=== PATIENT | male | born 1990 ===

== ENCOUNTER 2020-06-29 08:00 | Outpatient (RCR) | payer OTHER, SELFPAY ==
--- NOTE | 2020-08-31 15:18 | MHC.PT.DC ---
[facility] [place] Office [place] Office [place] Office [address] [phone] F: [phone] F: [phone] F: [phone] F: [phone] Physical Therapy Discharge Report Diagnosis: Date of Surgery: Date of Evaluation: 05/26/20 Date of Discharge: 08/31/20 Treatments to Date: 3 Cancellations to Date: 0 No Shows to Date: 3 Discharge Status: Patient Elected to Stop Discharge Summary: Pt ATTENDED A FEW PT APPTS- WE DEV A HEP AND EDUC HIM RE POSTURE- HE WOULD HAVE BENEFITTED FROM [facility] IN PT TO ASSIST HIM IN MEETING PT GOALS AND 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 Electronically signed by: JACKIE SMITH,PT Please sign and return to therapist. Thank you for your referral.
== END 2020-08-31 12:34 | disposition other institution (70) ==
LOC: HO.PT 08:00
PROVIDERS: PCP Internal Medicine; Visit Provider Internal Medicine
DX: M54.2 Cervicalgia (principal)
CPT/HCPCS: 97110; 97140

== ENCOUNTER 2020-08-26 14:49 | Outpatient (REF) | payer OTHER, SELFPAY ==
[2020-08-26 16:25] LABS: Syphilis Screen Nonreactive (Nonreactive)
[2020-08-27 13:37] LABS: Herpes Simplex Type 1 IgG <0.90 index; Herpes Simplex Type 2 IgG <0.90 index
[2020-08-29 03:33] LABS: HIV AB/AG Nonreactive (Nonreactive); HIV Num 1 0.06 S/CO (0.00-0.99)
[2020-08-29 03:46] LABS: ~HepC Num1 0.05 S/CO (0.00-0.79); ~Hepatitis C Antibody Nonreactive (Nonreactive)
== END 2020-08-26 14:50 | disposition home or self-care (01) ==
LOC: HO.LAB 14:49
PROVIDERS: PCP Internal Medicine; Visit Provider Internal Medicine
DX: Z11.3 Encounter for screening for infections with a predominantly sexual mode of transmission (principal)
CPT/HCPCS: 86695; 86696; 86780; 86803; 87389

== ENCOUNTER 2020-12-07 08:57 | Outpatient (REF) | payer OTHER, SELFPAY ==
--- NOTE | ~2020-12-07 | XR_ITS ---
EXAMINATION: XR CHEST CLINICAL INFORMATION: Dyspnea COMPARISON: None TECHNIQUE: 2 views of the chest were obtained. FINDINGS: No significant abnormality is noted involving the heart, lungs, mediastinum, bony thorax or soft tissues. XR/XR chest 2V IMPRESSION: Unremarkable examination.
[2020-12-07 09:37] LABS: MANUAL DIFF FLAG NO
[2020-12-07 09:44] LABS: Basophils Percent Auto 0.4 % (0-2); Eosinophils Absolute Auto 0.1 X10*3/uL (0.0-0.4); Eosinophils Percent Auto 1.8 % (0-4); Hematocrit 48.7 % (42-52); Hemoglobin 16.9 g/dl (14.0-18.0); Imm Gran Abs Auto 0.01 X10*3/uL (0.00-0.03); Imm Gran Pct Auto 0.2 % (0.0-0.4); Lymphocytes Absolute Auto 1.8 X10*3/uL (1.2-4.9); Mean Corpuscular HGB Conc 34.7 g/dl (31.0-36.0); Mean Corpuscular Hemoglobin 29.1 pg (27.0-33.0); Mean Corpuscular Volume 83.8 fL (80-98); Mean Platelet Volume 10.1 fL (9.4-12.4); Monocytes Absolute Auto 0.7 X10*3/uL (0.1-1.2); Monocytes Percent Auto 14.3 % (2-11); Neutrophils Absolute Auto 2.5 X10*3/uL (2.0-8.3); Neutrophils Percent Auto 48.3 % (45-73); Platelet Count 302 X10*3/uL (160-400); Red Blood Count 5.81 X10*6/uL (4.60-5.80); Red Cell Distribution Width 12.3 % (11.0-16.0); White Blood Count 5.1 X10*3/uL (4.8-10.8)
[2020-12-07 10:12] LABS: Anion Gap 14 (12-20); Blood Urea Nitrogen 16 mg/dL (9-16); Calcium 9.7 mg/dL (8.4-10.2); Carbon Dioxide 30 mmol/L (22-29); Chloride 102 mmol/L (96-108); Estimated Glomerular Filt Rate > 60; Glucose Random 74 mg/dL (60-115); Potassium 4.5 mmol/L (3.3-5.1); Sodium 141 mmol/L (135-145)
== END 2020-12-07 08:58 | disposition home or self-care (01) ==
LOC: HO.LAB 08:57
PROVIDERS: PCP Internal Medicine; Visit Provider Internal Medicine
DX: Z00.00 Encounter for general adult medical examination without abnormal findings (principal); R51.9 Headache, unspecified; R06.00 Dyspnea, unspecified
CPT/HCPCS: 36415; 71046; 80048; 85025

== ENCOUNTER 2020-12-19 09:11 | Outpatient (REF) | payer OTHER, SELFPAY ==
[2020-12-19 12:56] LABS: SARS COV2 PCR INHOUSE NEGATIVE (Negative)
== END 2020-12-19 09:12 | disposition home or self-care (01) ==
LOC: HO.LAB 09:11
PROVIDERS: Visit Provider Internal Medicine
DX: Z20.822 Contact with and (suspected) exposure to COVID-19 (principal)
CPT/HCPCS: C9803; U0003

== ENCOUNTER 2021-01-30 10:30 | Outpatient (REF) | payer OTHER, SELFPAY ==
[2021-01-30 10:48] LABS: COVID-19 Test Negative (Negative)
== END 2021-01-30 10:31 | disposition home or self-care (01) ==
LOC: HO.LAB 10:30
PROVIDERS: Visit Provider Internal Medicine
DX: Z20.822 Contact with and (suspected) exposure to COVID-19 (principal)
CPT/HCPCS: 36415; 87635; C9803

== ENCOUNTER 2021-02-06 14:08 | Emergency (ER) | payer OTHER, SELFPAY ==
[2021-02-06 15:15] VITALS: BP 137/72; PULSE 78; RESP 16; TEMP 36.6; O2SAT 95; BMI 27.3
--- NOTE | 2021-02-06 15:56 | ED_ITS ---
HPI - Anxiety General Chief Complaint: Anxiety Stated Complaint: ANXIETY Time Seen by Provider: 02/06/21 15:51 Source: patient Mode of arrival: ambulatory Limitations: no limitations History of Present Illness HPI narrative: patient with recent panic attacks. patient started paxil for anxiety on Saturday. Today patient was driving when he was feeling increased panic attack. His doctor started him on paxil complaint: anxiety Onset (ago): hour(s) Symptoms: palpitations, extremity numbness/tingling and perioral numbness/tingli ng Severity: moderate Quality: intermittent Place: home History of similar episodes: Yes Provoking factors: work/job stress Relieving factors: nothing Exacerbating factors: nothing Associated symptoms: chest pain Related Data Previous Rx's Medication Instructions Recorded fluticasone propionate 50 1 spray INTRANASAL BID #16 g 02/02/21 mcg/actuation nasal spray,suspension paroxetine HCl 20 mg tablet 20 mg PO DAILY #30 tab 02/02/21 hydroxyzine HCl 25 mg PO TID PRN #20 tab 02/06/21 Allergies Allergy/AdvReac Type Severity Reaction Status Date / Time Penicillins [PENICILLINS] Allergy Unknown UNKNOWN- Verified 02/02/21 15:30 CHILDHOOD ALLERGY Review of Systems Constitutional: Constitutional: Reports no additional constitutional complaints Eyes: Eyes: Reports no additional eye complaints ENT: Denies dizziness Cardiovascular: Cardiovascular: Reports no additional cardiovascular complaints Respiratory: Respiratory: Reports as per HPI Gastrointestinal: Gastrointestinal: Reports no additional gastrointestinal complaints Musculoskeletal: Musculoskeletal: Reports no additional musculoskeletal complaints Integumentary/Breasts: Skin/Breast: Denies rash Neurologic: Reports system reviewed and no additional complaints, except as documented, Denies dizziness and Denies Sensory deficit (Neuro) Psychiatric: Psychiatric: Denies anxiety PMFSH Past Medical History Medical History High cholesterol Panic disorder Surgical History History of appendectomy Family History Family History Father No problems noted. Mother No problems noted. Sister No problems noted. Sister No problems noted. Sister No problems noted. Son No problems noted. Daughter No problems noted. Daughter No problems noted. Social History Social History Alcohol intake: never Smoking Status: Never smoker Advance Directives Date on File: 06/20/20 Physical Exam Vital Signs: Vital Signs: Last Vital Signs Temp 97.8 F 02/06/21 15:15 Pulse 78 02/06/21 15:15 Resp 16 02/06/21 15:15 BP 137/72 02/06/21 15:15 Pulse Ox 95 02/06/21 15:15 Body Mass Index 27.3 Const: Other: patient appearing comfortable General: healthy appearing Nutritional Appearance: average body habitus Orientation/consciousness: oriented to person and patient oriented x3 Limitations: no limitations HENMT: Head: Yes normal to inspection Ears: external ears normal General nose exam: Normal external nose present Mouth: Normal oral and palatal mucosa present and oropharynx normal Throat: Yes posterior oropharynx normal Eyes: General: appearance normal, both eyes and all related structures Neck: Other: supple Neck: Yes normal visual inspection Chest: Chest palpation & inspection: normal inspection of the chest Resp: Auscultation: clear to auscultation bilaterally Cardio: Jugular venous distension: no JVD Rate: regular rate Rhythm: regular rhythm Heart sounds: S1 normal heart sound present and S2 normal heart sound present GI: Inspection: Yes normal to inspection Palpation (GI): Soft to palpation, nontender and No hepatosplenomegaly present Auscultation: normal bowel sounds : General: Yes no CVA tenderness Back/Spine/Pelvis: Back: no CVA tenderness Skin: General skin exam: no rashes or lesions noted Neuro: General: oriented to person and patient oriented x3 Cranial nerves: Yes CN's II-XII intact bilaterally Motor exam (neuro): 5/5 motor strength present throughout Sensory Exam: No Sensory deficit (Neuro) Extrem: General: Yes normal to inspection Psych: Appearance: grossly normal Course Course Course Narrative: Patient resting comfortably will start hydroxyzine for anxiety Discharge Plan Discharge Clinical Impression: Acute anxiety Patient Disposition: Home, Self-Care Instructions: Anxiety (ED) Prescriptions: New hydroxyzine HCl 25 mg tablet 25 mg PO TID PRN (Reason: anxiety) Qty: 20 RF: 0 No Action fluticasone propionate 50 mcg/actuation spray,suspension 1 spray intranasal BID Qty: 16 RF: 5 paroxetine HCl [Paxil] 20 mg tablet 20 mg PO DAILY Qty: 30 RF: 8 Referrals: Lainer,Jc C, MD [Primary Care Provider] - 1 week
== END 2021-02-06 16:23 | disposition home or self-care (01) ==
LOC: HO.ED 16:23
PROVIDERS: Emergency Provider Emergency Medicine; PCP Internal Medicine
DX: F41.9 Anxiety disorder, unspecified (principal); E78.5 Hyperlipidemia, unspecified
CPT/HCPCS: 99283; 99284

== ENCOUNTER 2021-05-07 00:06 | Emergency (ER) | payer OTHER, SELFPAY ==
[2021-05-07 00:29] VITALS: BP 123/80; PULSE 74; RESP 16; TEMP 36.6; O2SAT 97; BMI 28.2
[2021-05-07 02:00] VITALS: BP 119/72; PULSE 68; RESP 11; TEMP 36.5; O2SAT 99
--- NOTE | 2021-05-07 02:43 | ECG_ITS ---
Test Reason : CEST PAIN Blood Pressure : / mmHG Vent. Rate : 064 BPM Atrial Rate : 064 BPM P-R Int : 152 ms QRS Dur : 094 ms QT Int : 382 ms P-R-T Axes : 025 065 023 degrees QTc Int : 394 ms Normal sinus rhythm with sinus arrhythmia Normal ECG No previous ECGs available Referred By: Sheridan Blair Electronically Signed By:TOMÁS MENA
--- NOTE | 2021-05-07 02:43 | ED_ITS ---
HPI - Chest Pain General Chief Complaint: Chest Pain Stated Complaint: chest pain Time Seen by Provider: 05/07/21 02:38 Source: patient Mode of arrival: ambulatory Limitations: no limitations History of Present Illness HPI narrative: Patient comes emergency room complaining of chest pain for the last 2-3 weeks. Patient states sometimes he feels there is something sharp, that radiates from his left wrist up to his shoulder down to her. Lasting a few seconds. At this time, patient is asymptomatic. Patient states the chest pain gets better when he takes his medications for anxiety. Related Data Home Medications Medication Instructions Recorded Confirmed fluticasone propionate 50 1 spray INTRANASAL BID 04/27/21 04/27/21 mcg/actuation nasal spray,suspension (Flonase Allergy Relief) Previous Rx's Medication Instructions Recorded lorazepam 1 mg tablet 1 mg PO BID PRN #60 tab 04/25/21 oxcarbazepine 300 mg tablet 300 mg PO BID 7 Days #14 tab 05/05/21 (Trileptal) quetiapine 25 mg tablet (Seroquel) 25 mg PO DAILY PRN #7 tab 05/05/21 quetiapine 50 mg tablet (Seroquel) 50 mg PO BEDTIME 7 Days #7 tab 05/05/21 Allergies Allergy/AdvReac Type Severity Reaction Status Date / Time Penicillins [PENICILLINS] Allergy Unknown UNKNOWN- Verified 04/25/21 13:39 CHILDHOOD ALLERGY Review of Systems Review of Systems: Constitutional : No Weight loss, No Fever, No Chills, No Night Sweats, No Fatigue, No Malaise ENT/Mouth : No Hearing loss, No Ear Pain, No Nasal Congestion, No Sinus Pain, No Hoarseness, No sore throat, No Rhinorrhea, No Swallowing Difficulty Eyes: No Eye Pain, No Swelling, No Redness, No Foreign Body, No Discharge, No Vision Changes Cardiovascular : Complaining of intermittent sharp Chest Pain, No SOB, No Dyspnea on Exertion, No Orthopnea, No Edema, No Palpitations Respiratory : No Cough, No Sputum, No Wheezing, No Smoke Exposure, No Dyspnea Gastrointestinal : No Nausea, No Vomiting, No Diarrhea, No Constipation, No abdominal Pain, No Hematochezia, No Melena Genitourinary : no irregular bleeding, No Dysuria, No Urinary Frequency, No Hematuria, No Urinary Incontinence, No Urgency, No Flank Pain, No Urinary Flow Changes, No Hesitancy Musculoskeletal : No joint pain, No Myalgias, No Joint Swelling Skin : No Skin Lesions, No rash Neuro : No Weakness, No Numbness, No Paresthesias, No Loss of Consciousness, No Dizziness, No Headache Psych : Complaining of anxiety, No Depression, No SI/HI/AH/VH, No Social Issues, Heme/Lymph: No Bruising, No Bleeding,No Lymphadenopathy Endocrine : No Polyuria, No Polydipsia, No Temperature Intolerance [facility] Past Medical History Medical History High cholesterol Panic disorder Surgical History History of appendectomy Family History Family History Father No problems noted. Mother No problems noted. Sister No problems noted. Sister No problems noted. Sister No problems noted. Son No problems noted. Daughter No problems noted. Daughter No problems noted. Social History Social History Household Members: None Housing: House Alcohol intake: never Patient Tobacco Use Status: Never used Tobacco Second Hand Smoke Exposure: No Use of substances other than those prescribed or required for medical reasons: No Advance Directives: Yes Advance Directives on File: Yes Advance Directives Date on File: 06/20/20 service: No Current occupational status: unemployed Physical Exam Vital Signs: Vital Signs: Last Vital Signs Temp 97.7 F 05/07/21 02:00 Pulse 68 05/07/21 02:00 Resp 11 L 05/07/21 02:00 BP 119/72 05/07/21 02:00 Pulse Ox 99 05/07/21 02:00 Body Mass Index 28.2 Const: Other: Appearance: Alert. Oriented X3. No acute distress. Eyes: Pupils equal, round and reactive to light. ENT: Pharynx normal. Neck: Normal inspection. Neck supple. No lymph nodes noted. No crepitus CVS: Normal heart rate and rhythm. Pulses normal. Normal S1 and S2 Respiratory: No respiratory distress. Breath sounds normal. No Wheezing. No rales Abdomen: Soft and nontender. No rigidity. No distention. good BS x4 Skin: Skin warm and dry. Normal skin color. Normal skin turgor. Extremities: No lower extremity edema. No Lacerations. No Rash Neuro: Oriented X 3. No motor deficit. No sensory deficit. Moving all extermities. No slurred speech. Course Course Course Narrative: Patient remains asymptomatic, EKG and troponin negative. Wells score for PE is 0 MDM - Chest Pain Lab Data Result diagrams: 05/07/21 03:19 05/07/21 03:19 Labs: Lab Results 05/07/21 05/07/21 05/07/21 Range/Units 03:19 03:19 03:19 WBC 4.8 (4.8-10.8) X10*3/uL RBC 5.31 (4.60-5.80) X10*6/uL Hgb 15.7 (14.0-18.0) g/dl Hct 43.7 (42-52) % MCV 82.3 (80-98) fL MCH 29.6 (27.0-33.0) pg MCHC 35.9 (31.0-36.0) g/dl RDW 12.2 (11.0-16.0) % Plt Count 245 (160-400) X10*3/uL MPV 9.5 (9.4-12.4) fL Immature Gran % (Auto) 0.2 (0.0-0.4) % Neut % (Auto) 38.3 L (45-73) % Lymph % (Auto) 49.2 H (20-40) % [place] % (Auto) 9.6 (2-11) % Eos % (Auto) 2.1 (0-4) % Baso % (Auto) 0.6 (0-2) % Lymph # (Auto) 2.4 (1.2-4.9) X10*3/uL [place] # (Auto) 0.5 (0.1-1.2) X10*3/uL Eos # (Auto) 0.1 (0.0-0.4) X10*3/uL Baso # (Auto) 0.0 (0.0-0.2) X10*3/uL Abs Immat Gran (auto) 0.01 (0.00-0.03) X10*3/uL Absolute Neuts (auto) 1.8 L (2.0-8.3) X10*3/uL Absolute Nucleated RBC 0.000 (0.0-0.012) X10*3/uL Nucleated RBC % (auto) 0.0 (0.0-0.2) /100WBC Sodium 140 (135-145) mmol/L Potassium 4.6 (3.3-5.1) mmol/L Chloride 103 (96-108) mmol/L Carbon Dioxide 31 H (22-29) mmol/L Anion Gap 11 L (12-20) BUN 12 (9-16) mg/dL Creatinine 1.15 (0.5-1.4) mg/dL Estim Creat Clear Calc 104.2 Estimated GFR > 60 Random Glucose 93 (60-115) mg/dL Calcium 10.1 (8.4-10.2) mg/dL Troponin I High Sens < 3.5 (<3.5-35.0) ng/L ECG Data ECG #1: Attestation: I personally reviewed and interpreted this ECG as follows: (Normal sinus rhythm, heart rate 64, nonspecific T-wave inversion in lead 3, QTC 394) Discharge Plan Discharge Clinical Impression: Atypical chest pain Patient Disposition: Home, Self-Care Instructions: Chest Wall Pain (ED), Chest Pain (ED) Additional Instructions: Please follow-up with your primary care physician tomorrow. If you have any worsening or new symptoms, please return to the emergency room or call 911 Prescriptions: No Action fluticasone propionate [Flonase Allergy Relief] 50 mcg/actuation spray,suspens ion 1 spray intranasal BID RF: 0 oxcarbazepine [Trileptal] 300 mg tablet 300 mg PO BID 7 Days Qty: 14 RF: 0 quetiapine [Seroquel] 50 mg tablet 50 mg PO BEDTIME 7 Days Qty: 7 RF: 0 quetiapine [Seroquel] 25 mg tablet 25 mg PO DAILY PRN (Reason: anxiety) Qty: 7 RF: 0 lorazepam 1 mg tablet 1 mg PO BID PRN (Reason: anxiety) Qty: 60 RF: 0
[2021-05-07 03:22] LABS: MANUAL DIFF FLAG NO
[2021-05-07 03:24] LABS: Basophils Percent Auto 0.6 % (0-2); Eosinophils Absolute Auto 0.1 X10*3/uL (0.0-0.4); Eosinophils Percent Auto 2.1 % (0-4); Hematocrit 43.7 % (42-52); Hemoglobin 15.7 g/dl (14.0-18.0); Imm Gran Abs Auto 0.01 X10*3/uL (0.00-0.03); Imm Gran Pct Auto 0.2 % (0.0-0.4); Lymphocytes Absolute Auto 2.4 X10*3/uL (1.2-4.9); Lymphocytes Percent Auto 49.2 % (20-40); Mean Corpuscular HGB Conc 35.9 g/dl (31.0-36.0); Mean Corpuscular Hemoglobin 29.6 pg (27.0-33.0); Mean Corpuscular Volume 82.3 fL (80-98); Mean Platelet Volume 9.5 fL (9.4-12.4); Monocytes Absolute Auto 0.5 X10*3/uL (0.1-1.2); Monocytes Percent Auto 9.6 % (2-11); Neutrophils Absolute Auto 1.8 X10*3/uL (2.0-8.3); Neutrophils Percent Auto 38.3 % (45-73); Platelet Count 245 X10*3/uL (160-400); Red Blood Count 5.31 X10*6/uL (4.60-5.80); Red Cell Distribution Width 12.2 % (11.0-16.0); White Blood Count 4.8 X10*3/uL (4.8-10.8)
[2021-05-07 03:45] LABS: Anion Gap 11 (12-20); Blood Urea Nitrogen 12 mg/dL (9-16); Calcium 10.1 mg/dL (8.4-10.2); Carbon Dioxide 31 mmol/L (22-29); Chloride 103 mmol/L (96-108); Creatinine Clr Calc Pharmacy 104.2; Estimated Glomerular Filt Rate > 60; Glucose Random 93 mg/dL (60-115); Potassium 4.6 mmol/L (3.3-5.1); Sodium 140 mmol/L (135-145)
[2021-05-07 03:48] LABS: Troponin-I High Sensitivity < 3.5 ng/L (<3.5-35.0)
== END 2021-05-07 04:24 | disposition home or self-care (01) ==
PROVIDERS: Emergency Provider Emergency Medicine
DX: R07.89 Other chest pain (principal); M25.532 Pain in left wrist; Z79.899 Other long term (current) drug therapy
CPT/HCPCS: 36415; 80048; 84484; 85025; 93005; 99285

== ENCOUNTER 2021-05-17 09:00 | Outpatient (RCR) | payer OTHER, SELFPAY ==
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
[2021-04-27 12:36] VITALS: BMI 26.6
--- NOTE | 2021-04-27 13:13 | PC.ADMIT ---
Addendum entered by Tracy Wheeler RN 04/27/21 14:55: illicit drugs. Patient denies any current medical issues. Denies pain. Medications reconciled with patient and pharmacy. Medication changes made by [employer]: Sertraline discontinued, start Trileptal 150mg twice daily, Hydroxyzine 25mg 4x daily prn anxiety. Medication teaching done patient states good understanding. Original Note: 30 year old male admitted to [facility] on 04/27/2021. Patient reports increasing depression and anxiety with daily panic attacks. Patient reports he can no longer drive and does not leave home, states I never know when the panic attacks will come Patient denies SI and HI. States he has had suicidal thoughts in past without plan, no current SI. Patient denies AH and VH. Patient has been attending telehealth therapy. Patient denies any substance abuse. States he has never smoked, never drank alcohol, no use of
--- NOTE | 2021-04-27 14:18 | PC.NURSE ---
Case opened in treatment team
--- NOTE | 2021-05-01 14:40 | PC.NURSE ---
case opened in treatment team
--- NOTE | 2021-05-01 17:27 | HO.PHPPROGNO ---
Subjective Subjective Date of Service: 05/01/21 Reason For Visit: Bipolar I Subjective Notes: Watkins Warning Guardianship: No Medical Problems Affecting Mental Status: No Interim History: Frantz reports that he had begun the Trileptal 150 mg twice daily, and then he has tolerated well over the weekend. He also reports that he did not take the hydroxyzine, as he remembered taking in the past and did not like it stating ?it made me feel dizzy before ?. He reports that he continues with the lorazepam twice daily, and that he has not experienced a panic disorder in several weeks. Medication Compliance: Yes Side effects from medications: No Attending Groups: Yes Review of Systems Acute medical concerns: No Medical Review of Systems: unchanged Review of Systems Review of Systems Yes all other systems are reviewed and are negative Mental Status Exam Mental Status Exam Narrative: Well-developed, well-nourished male, in no apparent distress. Well groomed, eye contact within normal limits, no involuntary movements, motor activity calm, posture within normal limits. Manner and behavior calm, cooperative. Speech was fluent and unimpaired. Mood depressed, anxious. Affect mood congruent. Thought process and associations were goal directed. Thought content was normal, future oriented. No delusions, no hallucinations, denies any type of harm to self or others. Ambulation not observed. Patient Appearance: Well Grooomed and Appropriate Patient Orientation: Person, Place, Time and Situation Level of Consciousness: Awake and Appropriate Patient Behavior: Appropriate and Cooperative Mood Description: Depressed and Anxious Affect Description: Depressed and Anxious Ability to Follow Directions: Excellent Speech Pattern: Clear Memory Description: Intact Hallucinations: None Delusions: Not Present Thought Process: Intact Thought Content: positive for Intact Depressive Symptoms: Increased Anxiety, Feelings of Worthlessness, Hopelessness, Feelings of Guilt, Increased Fatigue and Low Self Esteem Judgement: Fair Diagnostics Vital Signs (24Hr): Body Mass Index 26.6 Assessment & Plan Assessment & Plan (1) SHIV (generalized anxiety disorder): Status: Acute Code(s): F41.1 - Generalized anxiety disorder Assessment and Plan: Patient has declined to start hydroxyzine. Patient continues with lorazepam b.i.d., states ?I am not ready to stop this yet ?. We did discuss other medications going forward, patient is willing to try BuSpar (2) Bipolar 1 disorder, depressed: Status: Acute Code(s): F31.9 - Bipolar disorder, unspecified Assessment and Plan: Patient reports that he has started Trileptal, and he feels comfortable with this medication. He states that he talked to his sister, and that she takes this medication with positive affect for similar issues. We discussed a dose increase. Patient is hesitant regarding medications, and wishes to only increase in small increments at this time. He states he is not experiencing any type of thoughts to harm self or others, no safety concerns at this time. Assessment and Plan: 1. Start BuSpar 5 mg b.i.d.. 2. Increase Trileptal to 150 mg in a.m., 300 in p.m.. 3. Patient receives lorazepam from PCP. 4. DC hydroxyzine, as patient has not taken. 5. Plan to follow up as per protocol. Reason for contiued partial hosp. stay Substantial Risk for: inability to function and med/psych decompensation Certification I certify that partial hospital treatment is medically necessary due to the symptoms and problems resulting from the patient's mental illness and the failure to treat the patient at the partial hospital level of care would likely result in the patient requiring inpatient psychiatric care which could not be prevented at a less intensive level of care. Greater than 50% of the session was spent on counseling and/or coordination of care Discharge Plan Discharge Attending provider: Onur Story Primary Care Provider: Jc Chao Medications: New oxcarbazepine [Trileptal] 150 mg tablet See Rx Instructions .ROUTE .COMPLEX 7 Days Qty: 21 RF: 0 buspirone 5 mg tablet 5 mg PO BID 7 Days Qty: 14 RF: 0 Discontinued sertraline 50 mg tablet 50 mg PO DAILY Qty: 30 RF: 3 No Action fluticasone propionate [Flonase Allergy Relief] 50 mcg/actuation spray,suspension 1 spray intranasal BID RF: 0 lorazepam 1 mg tablet 1 mg PO BID PRN (Reason: anxiety) Qty: 60 RF: 0 Referrals: Jc Chao MD [Primary Care Provider] - 1 Week Telehealth Telehealth Location of provider rendering services: practice address Location of patient: address on file Patient Identification confirmed using: Name, : Yes Telehealth method: video Patient verbally consented to treatment: Yes Patient verbally consented to billing insurance company: Yes Patient informed of any privacy concerns related to visit: Yes Time spent with patient (mins): 15
--- NOTE | 2021-05-03 09:33 | PC.NURSE ---
The client is out today due to an appointment he had scheduled prior to starting PHP
--- NOTE | 2021-05-04 14:43 | PC.NURSE ---
Spoke to patient who believes Buspar is causing an increase in energy when he takes it at HS causing issues with sleep and no longer wants to take at HS. Patient also stated the am dose causes dizziness for the first 20-30 minutes after taking which makes him anxious thus takes Lorazepam which helps. He wants to continue the morning dose as he finds it helpful. Reviewed with prescriber Sandra Barry NP who stated to D/C bedtime dose and continue the am dose. Patient is aware. Also advised patient to not operate heavy machinery and not to drive if feeling dizzy and patient agreed.
--- NOTE | 2021-05-05 14:42 | HO.PHPPROGNO ---
Subjective Subjective Date of Service: 05/05/21 Reason For Visit: Bipolar I Subjective Notes: Watkins Warning Guardianship: No Interim History: Frantz reports he has been taking Trileptal 150 mg in a.m. and then later 300 mg p.m. he did state though however that he has not been taking the 300 mg at night, but has been taking 150 mg t.i.d.. We reviewed medication instructions, and he states he understands that the 300mg was at bedtime, not split into 2 administrations. Med educ was provided. He reports feeling uncomfortable with the BuSpar, states that it feels it is activating for him. He reports that he chose to stop taking Seroquel in the past because he felt he was on too high a dose, even though was working well for him, and wanted to be able to stop it without needing to taper off. He reports that he has been continuing use of Ativan 1 mg b.i.d.. He states that his provider has told him he will no longer fill the script, and this is causing anxiety for patient. Medication Compliance: Yes Side effects from medications: No Attending Groups: Yes Review of Systems Acute medical concerns: No Medical Review of Systems: unchanged Mental Status Exam Mental Status Exam Narrative: Well-developed, well-nourished male, no apparent distress. Well groomed, dressed appropriately. Alert and oriented x4. Eye contact within normal limits. No involuntary movements noted, motor activity calm. Manner and behavior, cooperative. Speech fluent, unimpaired. Mood and affect anxious, depressed. Thought process and associations goal directed. Thought content is normal, future oriented. No delusions noted. No hallucinations noted. Patient denies any type of how thoughts of harm to self or others. Reliability and concentration appropriate. Judgment and insight continue fair. Ambulation not observed. Patient Appearance: Well Grooomed Patient Orientation: Person, Place, Time and Situation Diagnostics Vital Signs (24Hr): Body Mass Index 26.6 Assessment & Plan Assessment & Plan (1) SHIV (generalized anxiety disorder): Status: Acute Code(s): F41.1 - Generalized anxiety disorder Assessment and Plan: Patient reports he continues utilizing p.r.n. Ativan. He states his primary care physician has told him he will not refill script once he runs out. We discussed options such as adding gabapentin. Patient is not interested in doing this, but will consider resuming Seroquel. We discussed options including cutting the pills in half, and consider trialing p.r.n. Seroquel during the day. Patient is also agreeable to taking Seroquel 50 mg scheduled at bedtime. Patient willing to first try the seroquel when anxious and at bedtime. 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 Also, will use only 0.5mg of ativan rather than 1mg, as he is trying to wean down off the ativan. Patient also reports activation from [email or web address], med to be DC today. (2) Bipolar 1 disorder, depressed: Status: Acute Code(s): F31.9 - Bipolar disorder, unspecified Assessment and Plan: Patient reports he feels the Trileptal with a total dose of 450 mg daily is starting to help. He is willing to go up on dose to 300 mg b.i.d.. We discussed further titration, and it was recommended that after for 5 days he should consider increasing Trileptal again, as he is not yet at a therapeutic dose. He stated that he will consider this, and that he is willing to talk about it after the next few days. Denies any thoughts of harm to self or others, no safety concerns at this time. Assessment and Plan: 1. discontinue buspar. 2. Increase trileptal to 300mg BID. Patient willing to consider increase of dose in 4 to 5 days, will need to be seen. 3. Start seroquel 25mg prn for anxiety daily. 4. Start seroquel 50mg daily at bedtime. 5. Patient willing to first try the seroquel when anxious and at bedtime. Also, will use only 0.5mg of ativan rather than 1mg, as he is trying to wean down off the ativan. 6. Follow-up next Saturday or Saturday. Patient educated on: diagnosis, medication risk/benefits and therapeutic strategies Reason for contiued partial hosp. stay Substantial Risk for: inability to function and med/psych decompensation Certification I certify that partial hospital treatment is medically necessary due to the symptoms and problems resulting from the patient's mental illness and the failure to treat the patient at the partial hospital level of care would likely result in the patient requiring inpatient psychiatric care which could not be prevented at a less intensive level of care. Greater than 50% of the session was spent on counseling and/or coordination of care Discharge Plan Discharge Attending provider: Onur Story Primary Care Provider: Jc Chao Medications: New oxcarbazepine [Trileptal] 300 mg tablet 300 mg PO BID 7 Days Qty: 14 RF: 0 quetiapine [Seroquel] 50 mg tablet 50 mg PO BEDTIME 7 Days Qty: 7 RF: 0 quetiapine [Seroquel] 25 mg tablet 25 mg PO DAILY PRN (Reason: anxiety) Qty: 7 RF: 0 Discontinued sertraline 50 mg tablet 50 mg PO DAILY Qty: 30 RF: 3 No Action fluticasone propionate [Flonase Allergy Relief] 50 mcg/actuation spray,suspension 1 spray intranasal BID RF: 0 lorazepam 1 mg tablet 1 mg PO BID PRN (Reason: anxiety) Qty: 60 RF: 0 Referrals: Jc Chao MD [Primary Care Provider] - 1 Week Telehealth Telehealth Location of provider rendering services: practice address Location of patient: address on file Patient Identification confirmed using: Name, : Yes Telehealth method: video Patient verbally consented to treatment: Yes Patient verbally consented to billing insurance company: Yes Patient informed of any privacy concerns related to visit: Yes Time spent with patient (mins): 15
--- NOTE | 2021-05-09 13:07 | P.PNPSP_ITS ---
Subjective Subjective Date of Service: 05/09/21 Reason For Visit: Bipolar I Subjective Notes: Watkins Warning Healthcare Proxy: No Guardianship: No Medical Problems Affecting Mental Status: No Interim History: Frantz is a 30 y.o. who carries a dx of SHIV and unspecified bipolar disorder. At last session, he was started on seroquel 50 mg QHS and 25 mg QD PRN for anxiety, mood stability. He has been tapering himself off ativan 1 mg BID, as his PCP is no longer willing to prescribe and he is now down to 0.5 mg BID. He is now taking trileptal 300 mg BID. I evaluated the patient this morning and upon interview he reports this past weekend he had a wicked bad panic attack, attributes this to seroquel. On 05/07 Frantz self presented to [facility] via ambulance reporting chest pain x2-3 weeks. EKG was wnl, QTc was 394. Troponin was negative. Disposition was to f/u with OP providers for treatment of anxiety. He says he felt dizzy, super restless, and was unable to sleep after taking seroquel. He reports taking seroquel in the remote past and he does not remember adverse effects, however was unable to tolerate it now. He did not take it Saturday and says by Saturday his symptoms subsided. He reports positive benefit on increased trileptal dose, has noticed it is stabilizing my emotions. He continues to report struggling with anxiety, stressors include going through a break up. He has been doing well with weaning himself off ativan but says if he stops taking it altogether he notices increased anxiety. Says his sleep has been great when he is just taking trileptal. He is not interested in trialing any new medications today due to hx of side effects with recent med trials, im super over the trial and error type of thing. Also says he does not want to be on any meds that are sedating or addictive, likes the trileptal, asks to trial an increased dose of trileptal to target residual sx of anxiety due to tolerability. He reports he is feeling safe, denies SI/SIB/HI upon inquiry. He denies agitaiton or assaultive ideation. Denies sx of wendy. Medication Compliance: Yes Side effects from medications: No Attending Groups: Yes Review of Systems Acute medical concerns: No Review of Systems: CVS: No c/o chest pain, palpitations, no SOB FLANGE TURNER: No c/o dizziness, headache GI: No c/o Nausea, Vomiting, diarrhea, constipation or heartburns Mental Status Exam Mental Status Exam Narrative: A&O. Well groomed, good hygiene, normal body habitus. Good eye contact, attentive. No Tics or Tremors. No abnormal involuntary movements. Calm, cooperative, engaged. Non-pressured speech, spontaneous with regular rate and rhythm, normal volume and prosody. No prolonged speech latency or dysarthria. Mood is ?stable,? affect is euthymic. Denies SI/SIB/HI upon inquiry. Denies A/VH or delusional thought content. Thoughts are coherent, organized. No known cognitive or memory impairment. Insight/ Judgment fair and adequate. Diagnostics Vital Signs (24Hr): Body Mass Index 26.6 Assessment & Plan Assessment & Plan (1) SHIV (generalized anxiety disorder): Status: Acute Code(s): F41.1 - Generalized anxiety disorder (2) Bipolar 1 disorder, depressed: Status: Acute Code(s): F31.9 - Bipolar disorder, unspecified Assessment and Plan: Frantz is a 30 y.o. male who carries a dx of SHIV, unspecified bipolar disorder. He was referred to [facility] by [facility] therapist for increased sx of depression, anxiety, and panic attacks. Precipitating factors include going through a break up and losing employment. Plan: 1. Discontinue seroquel 50 mg QHS and 25 mg QD PRN due to reported side effects of restlessness and increased anxiety, dizziness 2. Increase trileptal to 450 mg BID for mood stability, may help with anxiety. Reviewed risks and benefits. 3. will continue to wean himself off ativan 1 mg BID PRN, now down to 0.5 mg BI D, does not want to be on anything addictive and PCP is no longer willing to prescribe. He does not want another PRN medication at this time. 4. Frantz is interested in obtaining an referral for OP med management and therapy, as he does not have a current psych provider and he would like a new therapist (currently sees someone at [facility] but does not feel like it is helping). He is interested in CBT therapy. 5. Monitor response to medications. Patient seen. Chart reviewed. Patient educated on: medication risk/benefits Reason for contiued partial hosp. stay Substantial Risk for: med/psych decompensation Certification I certify that partial hospital treatment is medically necessary due to the symptoms and problems resulting from the patient's mental illness and the failure to treat the patient at the partial hospital level of care would likely result in the patient requiring inpatient psychiatric care which could not be prevented at a less intensive level of care. Greater than 50% of the session was spent on counseling and/or coordination of care Discharge Plan Discharge Attending provider: Onur Story Primary Care Provider: Jc Chao Medications: New oxcarbazepine [Trileptal] 300 mg tablet 300 mg PO BID 7 Days Qty: 14 RF: 0 oxcarbazepine [Trileptal] 150 mg tablet 150 mg PO BID Qty: 30 RF: 1 Discontinued sertraline 50 mg tablet 50 mg PO DAILY Qty: 30 RF: 3 No Action fluticasone propionate [Flonase Allergy Relief] 50 mcg/actuation spray,suspension 1 spray intranasal BID RF: 0 lorazepam 1 mg tablet 1 mg PO BID PRN (Reason: anxiety) Qty: 60 RF: 0 Referrals: Jc Chao MD [Primary Care Provider] - 1 Week Stand Alone Forms: Patient Portal Discharge page
--- NOTE | 2021-05-09 14:34 | PC.NURSE ---
I called about made a referral for providers at [facility]. They will get back to me.
--- NOTE | 2021-05-10 09:54 | PC.NURSE ---
I called and made an intake appointment for the client at [facility]. The intake time is 05/19/21 @ 11 am with Brenda Mullen
--- NOTE | 2021-05-10 11:09 | PC.NURSE ---
Patient called and stated the groups were triggering for him today. Feeling increasingly anxious. He also stated he did not sleep well last night which is contributing to his anxiety and depression. Patient reports that he is safe. Denied SI. Patient stated he is discharging on Saturday and is feeling anxious about discharge which is increasing his anxiety. Wants more time in the program. Stated he is also anxious about getting new providers which staff is helping him obtain. Patient stated he needs to take the day off from the program today as he is feeling too triggered. Preethi Luong will reach out to patient to f/u. Educated patient about sleep hygiene and ways to reduce anxious feelings.
--- NOTE | 2021-05-10 12:41 | PC.NURSE ---
I spoke with blanca after he called stating that group brought up anxiety this morning and he is taking the rest of the day off. We discussed skills to use and having him start to attend 1/2 days. I also informed him of the intake appointment for providers and we decided that his time here will be extended until 05/18.
--- NOTE | 2021-05-11 15:06 | HO.PHPPROGNO ---
Subjective Subjective Date of Service: 05/11/21 Reason For Visit: Bipolar I Subjective Notes: Watkins Warning Guardianship: No Medical Problems Affecting Mental Status: No Interim History: Patient reports not taking medications as prescribed, saying that he has mistakenly taken too much tripletal because he thought it was the seroquel. He reports an increase in depression and anxiety. He reports that several days ago his Trileptal had been increased to 450 mg b.i.d.. He stated that ?this was too much for me ?. He states that he got dizzy and disoriented when taking the Seroquel and had stopped that earlier. He also reports that he had a panic attack last Saturday, and had gone to the ER and was sent home. Patient has had and an EKG dated 05/07/2021 that showed normal sinus rhythm, with signs of arrhythmia, classified as a normal ECG. He also had negative troponin. We discussed current medications. We discussed current trials of BuSpar, Seroquel, and now most recent issue with increased dose of Trileptal. Patient states he believes he has ?cardio phobia ?, and that he becomes overwhelmed because he thinks he is having a heart attack and needs to go to the hospital. He states that it occurs whenever he needs to drive, or when he needs to go to a class, and in groups. We discussed alternatives such as clonidine, propanolol. We discussed risks, benefits, side effects, and alternatives going forward. He is willing to try a low dose of propranolol, in order to help manage physical symptoms of anxiety / panic at this time. Medication Compliance: Intermittent Side effects from medications: No Attending Groups: Yes Review of Systems Acute medical concerns: No Medical Review of Systems: unchanged Mental Status Exam Mental Status Exam Narrative: Well-developed, well-nourished male, in no apparent distress. Restless, moving about the room during meeting. Gait appeared steady, no involuntary movements noted. Patient Appearance: Well Grooomed and Appropriate Patient Orientation: Person, Place, Time and Situation Level of Consciousness: Awake and Appropriate Patient Behavior: Appropriate, Restless, Anxious and Good Eye Contact Mood Description: Anxious Affect Description: Anxious Patient Cognition Impaired: No Ability to Follow Directions: Excellent Speech Pattern: Clear and Appropriate Memory Description: Intact Hallucinations: None Delusions: Not Present Thought Process: Intact, Goal Oriented and Linear Thought Content: positive for Intact, positive for Logical and positive for Hypochondriasis (states he is over-concerned with my heart . ) Depressive Symptoms: Increased Anxiety and Difficulty Sleeping Judgement: Fair Diagnostics Vital Signs (24Hr): Body Mass Index 26.6 Assessment & Plan Assessment & Plan (1) SHIV (generalized anxiety disorder): Status: Acute Code(s): F41.1 - Generalized anxiety disorder Assessment and Plan: Discussed medication options. Patient willing to try propranolol. (2) Bipolar 1 disorder, depressed: Status: Acute Code(s): F31.9 - Bipolar disorder, unspecified Assessment and Plan: Patient reports he did not like increased dose of Trileptal, as he feels it was too fast of an increase. He would prefer to continue with 300 mg b.i.d. for now. Assessment and Plan: 1. Continue trileptal 300mg BID, with plan to increase as tolerated. 2. Start propanolol 5mg BID prn, with plan to increase as tolerated. Reason for contiued partial hosp. stay Substantial Risk for: inability to function and med/psych decompensation Certification I certify that partial hospital treatment is medically necessary due to the symptoms and problems resulting from the patient's mental illness and the failure to treat the patient at the partial hospital level of care would likely result in the patient requiring inpatient psychiatric care which could not be prevented at a less intensive level of care. Greater than 50% of the session was spent on counseling and/or coordination of care Discharge Plan Discharge Attending provider: Onur tSory Primary Care Provider: Jc Chao Medications: New oxcarbazepine [Trileptal] 300 mg tablet 300 mg PO BID 7 Days Qty: 14 RF: 0 oxcarbazepine [Trileptal] 150 mg tablet 150 mg PO BID Qty: 30 RF: 1 propranolol 10 mg tablet 10 mg PO BID PRN (Reason: anxiety) Qty: 14 RF: 0 Discontinued sertraline 50 mg tablet 50 mg PO DAILY Qty: 30 RF: 3 No Action fluticasone propionate [Flonase Allergy Relief] 50 mcg/actuation spray,suspension 1 spray intranasal BID RF: 0 lorazepam 1 mg tablet 1 mg PO BID PRN (Reason: anxiety) Qty: 60 RF: 0 Referrals: Jc Chao MD [Primary Care Provider] - 1 Week Stand Alone Forms: Patient Portal Discharge page Telehealth Telehealth Location of provider rendering services: practice address Location of patient: address on file Patient Identification confirmed using: Name, : Yes Telehealth method: video Patient verbally consented to treatment: Yes Patient verbally consented to billing insurance company: Yes Patient informed of any privacy concerns related to visit: Yes Time spent with patient (mins): 15
--- NOTE | 2021-05-16 12:26 | HO.PHPPROGNO ---
Subjective Subjective Date of Service: 05/16/21 Reason For Visit: Bipolar I Subjective Notes: Watkins Warning and Conditional Voluntary Healthcare Proxy: No Guardianship: No Medical Problems Affecting Mental Status: No Interim History: Frantz is a 30 y.o. who carries a dx of SHIV and unspecified bipolar disorder. During the course of treatment at [facility], he has been started on trileptal 300 mg BID for mood stability. At last session, he was started on propranolol 10 mg BID PRN for anxiety. In addition, he has been tapering himself off ativan 1 mg BID, as his PCP was providing this but he is no longer willing to prescribe it outpatient.? Past med trials: Buspar, seroquel, hydroxyzine, paxil.? I evaluated the patient this morning and upon interview he reports he has been taking trileptal 300 mg BID and ?hetal been doing fine on it.? Says on 450 mg he felt like his ?depression was going back up.? He self-discontinued propranolol 10 mg BID for anxiety due to side effects of feeling ?tired,? ?sick,? ?tunnel vision,? and decreased heart rate (he checked it on his home pulse ox machine, says it was 50 bpm). Frantz admits he is ?very med sensitive.? He continues to report difficulting titrating off lorazepam, as he feels this has been the most effective for acute anxiety and he is tolerating it. He understands why it is not appropriate to prescribe a benzo in this setting, plans to ask for lorazepam for as needed and short term use during his OP med eval appointment. Denies hx of substance use other than cannabis (notes that sativa strands worsen anxiety, has not used it in several months because of this). Denies benefit on CBD.? Frantz does not want to trial a new medication, as he is nearing the end of his [facility] stay and has an OP med eval appointment coming up. Says on trileptal 300 mg he has noticed he feels ?less corcoran,? ?more leveled out.? He is also hopeful that CBT will help with his anxiety sx, hoping it will help with his driving anxiety, ?I cant drive right now.? His mom has a hx of agoraphobia and Frantz would like to avoid this.? Medication Compliance: Yes Side effects from medications: Yes Attending Groups: Yes Review of Systems Acute medical concerns: No Medical Review of Systems: unchanged Mental Status Exam Mental Status Exam Narrative: A&O. Well groomed, good hygiene, normal body habitus. Good eye contact, attentive. No Tics or Tremors. No abnormal involuntary movements. Calm, cooperative, engaged. Non-pressured speech, spontaneous with regular rate and rhythm, normal volume and prosody. No prolonged speech latency or dysarthria. Mood is ?better,? affect is euthymic. Denies SI/SIB/HI upon inquiry. Denies A/VH or delusional thought content. Thoughts are coherent, organized. No known cognitive or memory impairment. Insight/ Judgment fair and adequate. Diagnostics Vital Signs (24Hr): Body Mass Index 26.6 Assessment & Plan Assessment & Plan (1) SHIV (generalized anxiety disorder): Status: Acute Code(s): F41.1 - Generalized anxiety disorder (2) Bipolar 1 disorder, depressed: Status: Acute Code(s): F31.9 - Bipolar disorder, unspecified (3) Panic disorder: Status: Acute Code(s): F41.0 - Panic disorder [episodic paroxysmal anxiety] Assessment and Plan: Frantz is a 30 y.o. male who carries a dx of SHIV, unspecified bipolar disorder. He was referred to [facility] by [facility] therapist for increased sx of depression, anxiety, and panic attacks. Precipitating factors include going through a break up and losing employment. 05/16: Frantz does not want to trial a new medication, as he is nearing the end of his [facility] stay and has an OP med eval appointment coming up. Says on trileptal 300 mg he has noticed he feels ?less corcoran,? ?more leveled out.? He is also hopeful that CBT will help with his anxiety sx, hoping it will help with his driving anxiety, ?I cant drive right now.? His mom has a hx of agoraphobia and Frantz would like to avoid this. Plan: 1. Discontinue propranolol 10 mg BID for anxiety due to reported intolerability 2. continue trileptal 300 mg BID for mood stability, may help with anxiety. Reviewed risks and benefits. 3. will continue to wean himself off ativan 1 mg BID PRN, PCP is no longer willing to prescribe. 4. f/u with OP psych referrals 5. Monitor response to medications. Patient seen. Chart reviewed. Certification I certify that partial hospital treatment is medically necessary due to the symptoms and problems resulting from the patient's mental illness and the failure to treat the patient at the partial hospital level of care would likely result in the patient requiring inpatient psychiatric care which could not be prevented at a less intensive level of care. Greater than 50% of the session was spent on counseling and/or coordination of care Discharge Plan Discharge Attending provider: Onur Story Primary Care Provider: Jc Chao Medications: New oxcarbazepine [Trileptal] 300 mg tablet 300 mg PO BID 7 Days Qty: 14 RF: 0 oxcarbazepine [Trileptal] 150 mg tablet 150 mg PO BID Qty: 30 RF: 1 Discontinued sertraline 50 mg tablet 50 mg PO DAILY Qty: 30 RF: 3 No Action fluticasone propionate [Flonase Allergy Relief] 50 mcg/actuation spray,suspension 1 spray intranasal BID RF: 0 lorazepam 1 mg tablet 1 mg PO BID PRN (Reason: anxiety) Qty: 60 RF: 0 Referrals: Jc Chao MD [Primary Care Provider] - 1 Week Stand Alone Forms: Patient Portal Discharge page
--- NOTE | 2021-05-17 11:01 | PC.NURSE ---
Patient scheduled to discharge from [facility] today. Reviewed patient medications with patient. Patient reports that he needs refills on Trileptal 300 mg BID. Patient reports he is not taking the additional Trileptal 150 mg with the 300 mg tab BID. Patient reports he forgot to ask Jessica Samuel NP when he met with her yesterday. Will reviewed information with Darling Barry NP. Patient denied SI, no safety concerns. Feels ready of discharge.
--- NOTE | 2021-05-17 17:23 | PM.EVENT ---
Event Note Date of Service: 05/17/21 Event Note: Patient had reported was out of Trileptal 300 b.i.d., script sent to pharmacy for 30 day supply Trileptal 300 mg b.i.d..
== END 2021-05-18 08:45 | disposition home or self-care (01) ==
LOC: HO.PHPA 09:00
PROVIDERS: PCP Internal Medicine; Visit Provider Psychiatry & Neurology Psychiatry
DX: F31.9 Bipolar disorder, unspecified (principal); F41.1 Generalized anxiety disorder; Z79.899 Other long term (current) drug therapy
CPT/HCPCS: 90791; 90853

== ENCOUNTER → 2021-07-03 10:41 | Outpatient (REF) | payer OTHER, SELFPAY | LOC: HO.SL 10:41 | PROVIDERS: PCP Internal Medicine; Visit Provider Internal Medicine | DX: G47.9 Sleep disorder, unspecified (principal) | CPT/HCPCS: 95806 ==

== ENCOUNTER → 2022-05-15 14:19 | Outpatient (BNVA) | payer OTHER, SELFPAY | PROVIDERS: PCP Internal Medicine; Referring Provider Internal Medicine; Visit Provider Internal Medicine | DX: R07.9 Chest pain, unspecified (principal); R06.02 Shortness of breath; E78.00 Pure hypercholesterolemia, unspecified; F41.0 Panic disorder [episodic paroxysmal anxiety] | CPT/HCPCS: 93005; 99202 ==

== ENCOUNTER → 2022-06-04 15:54 | Outpatient (REF) | payer OTHER, SELFPAY ==
--- NOTE | 2022-06-04 15:57 | CA_ITS ---
Transthoracic Echocardiogram Amended Patient (Last, First, Middle): Frantz Granados L Gender: Male Date of : 1990 Age: 31 Procedure Date: 06/04/2022 Procedure Type: Transthoracic Echocardiogram Location: OP Height: 175.26 cm Weight: 84.82 kg BSA: 2.01 m2 Heart Rate: bpm BP: 125 / 88 mmHg Seamer Elastic Band: ANGEL Referring MD: Nick Bo MD Symptoms: R06.00 - Dyspnea, unspecified Study Quality: Adequate ECG Rhythm: Sinus Conclusions: - The left ventricular systolic function is normal. The calculated ejection fraction is 62% by biplane method. - No obvious valvular pathology seen on this study. Findings Left Ventricle Normal left ventricular cavity size. There is normal left ventricular wall thickness. The left ventricular systolic function is normal. The calculated ejection fraction is 62% by biplane method. There is no evidence of regional wall motion abnormalities. Diastolic function is normal for age. Right Ventricle There is normal right ventricular systolic function. Top normal right ventricular size. Atria Both atria are normal in size. Aortic Valve There is a normal trileaflet aortic valve. There is no aortic valve stenosis. There is no aortic valve regurgitation. Mitral Valve The mitral valve appears normal. There is no mitral valve regurgitation. There is no mitral valve stenosis. Pulmonic Valve The pulmonic valve is likely normal. Tricuspid Valve Normal tricuspid valve structure. There is trace tricuspid valve regurgitation. There is no evidence of pulmonary hypertension. Great Vessels The aortic annulus, sinuses of valsalva, asc aorta, and aortic arch are normal in size. Venous The inferior vena cava is normal in size and collapses greater than 50% with inspiration. Pericardium/Pleural There is no evidence of pericardial effusion. Prior Study Comparison No prior study available for comparison. Recommendations, Care & Conclusions No obvious valvular pathology seen on this study. Measurements 2D Linear Measurements IVSd: 0.69 0.6-0.9/0.6-1.0 cm LVIDd: 4.65 3.9-5.3/4.2-5.9 cm LVIDd Index: 2.31 2.4-3.2/2.2-3.1 cm/m2 LVIDs: 2.90 2.0-3.6 cm LVPWd: 0.74 0.7-1.1 cm LA Diam: 3.00 2.7-3.8/3.0-4.0 cm LAIDs Index: 1.49 1.5-2.3 cm/m2 LV Mass: 129.76 67-162/88-224 g LV Mass Index: 64.56 43-95/49-115 g/m2 LVOT Diam: 2.10 3.0+(-)1.3 cm 2D Volumes LA Vol: 17.20 2D Systolic Function EF 4C: 57.10 >55% EF 2C: 66.40 >55% EF BiP: 62.20 >55% Mitral Valve MV Pk E: 0.76 MV PK A: 0.62 MV Decel Time: 200.00 E/A: 1.20 E'Lateral: 17.80 E'Medial: 11.50 E/E' Med: 6.60 E/E' Lat: 4.30 PHT: 58.00 MVA PHT: 3.79 Decel Barber: 3.83 Aortic Valve AoV Pk Brayden: 1.34 AoV Mn Brayden: 0.95 AoV VTI: 0.26 AoV Pk Grad: 7.00 Aov Mn Grad: 4.00 ASUNCION Cont.VTI: 2.59 LVOT LVOT Pk Brayden: 1.12 LVOT Mn Brayden: 0.72 LVOT VTI: 0.20 LVOT Pk Grad: 5.00 LVOT Mn Grad: 2.00 LVOT Diam: 2.10 LVOT Area: 3.46 Diastolic Function MV Pk E: 0.76 MV Pk A: 0.62 E/A: 1.20 E'Medial: 11.50 E/E' Med: 6.60 E' Laterial: 17.80 E/E' Lat: 4.30 Right Ventricle TAPSE (mm): 23.60 TVS' Brayden: 12.00 Tricuspid Valve RA Press: 3.00 Great Vessels Aorta Sinus of Valsalva: 3.20 2.0-3.[address] Ridge: 2.36 1.7-3.4 cm Ao Asc: 2.80 2.1-3.4 cm Ao Arch: 2.80 Updated in Other Vendor System with Status of Final Nick Bo MD electronically signed on 06/05/2022 12:49:50 PM with status of Final
== END ==
LOC: HO.CARD 15:54
PROVIDERS: Visit Provider Internal Medicine
DX: R06.00 Dyspnea, unspecified (principal)
CPT/HCPCS: 93306

== ENCOUNTER 2022-07-18 08:35 | Outpatient (REF) | payer OTHER, SELFPAY ==
[2022-07-18 10:09] LABS: Alanine Aminotransferase 30 U/L (0-40); Albumin Level 5.1 g/dL (3.5-5.0); Alkaline Phosphatase 57 U/L (39-117); Anion Gap 17 (12-20); Aspartate Amino Transferase 20 U/L (5-37); Bilirubin Total 1.3 mg/dL (0.0-1.0); Blood Urea Nitrogen 12 mg/dL (9-16); Calcium 10.3 mg/dL (8.4-10.2); Carbon Dioxide 26 mmol/L (22-29); Chloride 101 mmol/L (96-108); Cholesterol 336 mg/dL; Estimated Glomerular Filt Rate > 60; Glucose Fasting 93 mg/dL (60-99); HDL Cholesterol 57 mg/dL; LDL Cholesterol Calculated 264 mg/dl; Potassium 4.4 mmol/L (3.3-5.1); Sodium 140 mmol/L (135-145); Total Protein 8.5 g/dL (6.5-8.0); Triglycerides 75 mg/dL
== END 2022-07-18 08:36 | disposition home or self-care (01) ==
LOC: HO.LAB 08:35
PROVIDERS: PCP Internal Medicine; Visit Provider Internal Medicine
DX: E78.00 Pure hypercholesterolemia, unspecified (principal); E78.5 Hyperlipidemia, unspecified
CPT/HCPCS: 36415; 80053; 80061

== ENCOUNTER 2022-10-12 09:08 | Outpatient (REF) | payer OTHER, SELFPAY ==
[2022-10-12 12:08] LABS: Alanine Aminotransferase 28 U/L (0-40); Albumin Level 4.9 g/dL (3.5-5.0); Alkaline Phosphatase 65 U/L (39-117); Anion Gap 12 (12-20); Aspartate Amino Transferase 21 U/L (5-37); Bilirubin Total 1.3 mg/dL (0.0-1.0); Blood Urea Nitrogen 13 mg/dL (9-16); Carbon Dioxide 28 mmol/L (22-29); Chloride 103 mmol/L (96-108); Cholesterol 303 mg/dL; Estimated Glomerular Filt Rate > 60; Glucose Fasting 85 mg/dL (60-99); HDL Cholesterol 40 mg/dL; LDL Cholesterol Calculated 242 mg/dl; Potassium 4.3 mmol/L (3.3-5.1); Sodium 139 mmol/L (135-145); Triglycerides 106 mg/dL
[2022-10-12 12:16] LABS: PSA,Total (Free>4and<10) 0.94 ng/mL (0.00-4.00)
== END 2022-10-12 09:09 | disposition home or self-care (01) ==
LOC: HO.LAB 09:08
PROVIDERS: PCP Internal Medicine; Visit Provider Internal Medicine
DX: Z00.00 Encounter for general adult medical examination without abnormal findings (principal); E78.5 Hyperlipidemia, unspecified; Z12.5 Encounter for screening for malignant neoplasm of prostate
CPT/HCPCS: 36415; 80053; 80061; 84153

== ENCOUNTER 2022-12-07 10:21 | Outpatient (REF) | payer OTHER, SELFPAY ==
[2022-12-07 11:40] LABS: Appearance Urine Clear; Color Urine Yellow; Glucose Urine UA Negative (Negative); Leukocyte Esterase Urine Small (1+) (Negative); Nitrite Urine Negative (Negative); PH 7.5 (5.0-9.0); Specific Gravity - Urine 1.015 (1.005-1.025); UMIC TRIGGER UACC YES; Urine Blood Negative (Negative); Urine Ketones Negative (Negative); Urine Protein Negative (Neg-Trace)
[2022-12-07 12:29] LABS: Syphilis Screen Nonreactive (Nonreactive)
[2022-12-07 13:14] LABS: Bacteria Urine None Seen (None Seen); Hyaline Casts Urine 0-2 /LPF (0-2); RBC Urine 0-2 /HPF (0-2); Squamous Epithelial Cell Urine 0-2 /HPF (0-2); UACC Culture Trigger YES; WBC Urine 0-5 /HPF (0-5)
[2022-12-07 14:04] LABS: CT PCR NOT DETECTED (Not Detect.); NG PCR NOT DETECTED (Not Detect.)
== END 2022-12-07 10:22 | disposition home or self-care (01) ==
LOC: HO.LAB 10:21
PROVIDERS: PCP Internal Medicine; Visit Provider Internal Medicine
DX: R30.0 Dysuria (principal); Z20.2 Contact with and (suspected) exposure to infections with a predominantly sexual mode of transmission
CPT/HCPCS: 0353U; 81001; 86780; 87086

== ENCOUNTER 2023-06-28 08:51 | Outpatient (AMB) | payer OTHER, SELFPAY ==
--- NOTE | 2023-06-28 10:18 | MHC.OFFWIV ---
Intake Vital Signs 06/28/23 10:20 Height 5 ft 9 in Weight 189 lb BMI 27.9 BP 130/76 Blood Pressure Location Rt brachial Position Sitting Pulse 89 Pulse Source Pulse Oximeter Temp 98.1 F Pulse Oximetry (%) 98 Oxygen Delivery Method Room Air Intake Visit Reasons: EP Sore throat [phone] Intake Note: Patient here for sore throat,fevers and bumps on right hand that are itchy since saturday Patient Tobacco Use Status: Former Tobacco user Allergies Penicillins [PENICILLINS] Allergy (Unknown, Verified 06/28/23 10:26) UNKNOWN- CHILDHOOD ALLERGY Do you need a note to return to daycare/school/sports/work: Yes HPI HPI Comments History of Present Illness Details This is a 33-year-old male who presents to the office today for sick visit. Patient complaining of sore throat, odynophagia, and fevers x2 days. Patient states he woke up 2 days ago with a sore throat and a temperature of 102? F. he has also been feeling fatigued. He has some mild nasal congestion and rhinorrhea, but he states this usually happens with the weather changes. Patient also have some small bumps on his right hand, which are pruritic. [facility] Medical History High cholesterol Panic disorder Surgical History History of appendectomy Family History Father No problems noted. Mother Heart murmur Sister No problems noted. Sister No problems noted. Sister No problems noted. Son No problems noted. Daughter No problems noted. Daughter No problems noted. Social History Household Members: None Housing: House Alcohol intake: former Patient Tobacco Use Status: Former Tobacco user Tobacco use type: Cigarette e-Cigarette/Vaping Use: Never Used Second Hand Smoke Exposure: No Advance Directives Date on File: 06/20/20 service: No Current occupational status: unemployed Cognitive needs: No Hearing needs: No Vision needs: No Review of Systems Const All systems reviewed & are unremarkable except as noted in HPI and below Reports no additional complaints Eyes Reports no additional complaints ENT Reports no additional complaints Card Reports no additional complaints Resp Reports no additional complaints GI Reports no additional complaints Reports no additional complaints Musc Reports no additional complaints Skin/Breast Reports system reviewed and no additional complaints, except as documented Neuro Reports no additional complaints Psych Reports no additional complaints Endo Reports no additional complaints Rayray/Lymph Reports no additional complaints Aller/Immun Reports no additional complaints Physical Exam Vital Signs: Last Vital Signs Temp 98.1 F 06/28/23 10:20 Pulse 89 06/28/23 10:20 BP 130/76 06/28/23 10:20 Pulse Ox 98 06/28/23 10:20 Oxygen Delivery Method Room Air 06/28/23 10:20 BMI result Body Mass Index 27.9 Const Other: Vital signs reviewed. Constitutional: Non-toxic appearing. No acute distress. Well-developed and well-nourished. HEENT: Normocephalic and atraumatic. Tympanic membranes without erythema, edema, or bulging bilaterally. External auditory canals without erythema or edema bilaterally. Moist mucous membranes. Significant posterior pharyngeal erythema and some mild tonsillar hypertrophy. No peritonsillar mass or abscess noted. No uvular deviation. No unilateral neck swelling. Skin: Warm and dry. Two small erythematous papules located on patient's right hand and one small erythematous papule located on patient's right foot. Neck: Full and painless range of motion. No cervical lymphadenopathy. Cardio: Regular rate. No lower extremity edema. No JVD. Pulmonary: No respiratory distress. No accessory muscle usage. Gastrointestinal: Soft, nontender, and nondistended in all 4 quadrants. Musculoskeletal: Normal range of motion in joints throughout the body. No deformity or other signs of injury. Neuro: Alert and oriented x4. Cranial nerves 2-12 grossly intact. No focal deficits appreciated. Psych: Normal mood and affect. Assessment & Plan Assessment & Plan (1) Pharyngitis: Code(s): J02.9 - Acute pharyngitis, unspecified Plan: This is a 33-year-old male presenting to the office complaining of sore throat, fevers, and fatigue x2 days. On physical examination patient has significant posterior pharyngeal erythema and some mild tonsillar hypertrophy. His rapid strep test is negative; however, there is a high incidence of false negatives on rapid strep test and patient clinically appears to have strep pharyngitis. Patient sent home on p.o. azithromycin 500 mg today followed by 250 mg daily x4 days given penicillin allergy. Recommended symptomatic management including rest, increased fluids, advil/tylenol for pain/fever, and over the counter throat lozenges/decongestants. Patient advised to follow up here or go to the emergency room for worsening/persistent symptoms. Patient verbalized understanding and is agreeable with the plan. Patient sent home on topical steroid cream for the pruritic rash. The rash does not appear to be consistent with scarlet fever given there are only 3 small papules on his body. Medications: New azithromycin For 250 mg dose pack: take 500 mg today (day 1), then 250 mg for 4 days (days 2-5) PO 6 tabs 0RF triamcinolone acetonide 0.05% 1 appl topical DAILY 110 grams 0RF Coding Level of Care Code Est Pt Level 3 (05448) Diagnoses Pharyngitis J02.9
[2023-06-28 10:20] VITALS: BP 130/76; PULSE 89; TEMP 36.7; O2SAT 98; BMI 27.9
== END 2023-06-28 10:54 | disposition home or self-care (01) ==
PROVIDERS: PCP Internal Medicine; Visit Provider Physician Assistant Medical
DX: J02.9 Acute pharyngitis, unspecified (principal)
CPT/HCPCS: 87880; 99213

== ENCOUNTER 2023-06-30 18:52 | Emergency (ER) | payer OTHER, SELFPAY ==
--- NOTE | ~2023-06-30 | US_ITS ---
EXAMINATION: US SCROTUM CLINICAL INFORMATION: Left testicular pain and swelling.. COMPARISON: None available. TECHNIQUE: A sonogram of the scrotum was performed assessing perez-scale appearance and color Doppler flow. Spectral Doppler analysis of the arterial and venous flow were performed in the testes bilaterally. FINDINGS: RIGHT: Right testicle measures 4.5 x 2 x 3.4 cm, volume 16.2 mL. No focal testicular parenchymal lesions are visualized. Spectral Doppler analysis of the arterial and venous flow is increased in the right testis. Right epididymal head is mildly thickened, edematous. Small right-sided hydrocele. Small right-sided varicocele. Right epididymal Doppler flow is increased. LEFT: Left testicle measures 4.5 x 2.3 x 3.1 cm, volume 17.1 mL. No focal testicular parenchymal lesions are visualized. Spectral Doppler analysis of the arterial and venous flow is increased in the left testis. Left epididymal head is mildly thickened, edematous. Small right-sided hydrocele. Small left-sided varicocele. Left epididymal Doppler flow is increased. US/US scrotum doppler IMPRESSION: 1. Increased Doppler flow in both the right and left testicle and epididymis consistent with epididymoorchitis. 2. Small bilateral hydroceles. 3. Small bilateral varicoceles.
--- NOTE | ~2023-06-30 | US_ITS ---
EXAMINATION: US SCROTUM CLINICAL INFORMATION: Left testicular pain and swelling.. COMPARISON: None available. TECHNIQUE: A sonogram of the scrotum was performed assessing perez-scale appearance and color Doppler flow. Spectral Doppler analysis of the arterial and venous flow were performed in the testes bilaterally. FINDINGS: RIGHT: Right testicle measures 4.5 x 2 x 3.4 cm, volume 16.2 mL. No focal testicular parenchymal lesions are visualized. Spectral Doppler analysis of the arterial and venous flow is increased in the right testis. Right epididymal head is mildly thickened, edematous. Small right-sided hydrocele. Small right-sided varicocele. Right epididymal Doppler flow is increased. LEFT: Left testicle measures 4.5 x 2.3 x 3.1 cm, volume 17.1 mL. No focal testicular parenchymal lesions are visualized. Spectral Doppler analysis of the arterial and venous flow is increased in the left testis. Left epididymal head is mildly thickened, edematous. Small right-sided hydrocele. Small left-sided varicocele. Left epididymal Doppler flow is increased. US/US scrotum IMPRESSION: 1. Increased Doppler flow in both the right and left testicle and epididymis consistent with epididymoorchitis. 2. Small bilateral hydroceles. 3. Small bilateral varicoceles.
[2023-06-30 19:01] VITALS: BP 132/79; PULSE 109; RESP 20; TEMP 37.4; O2SAT 99; BMI 27.9
--- NOTE | 2023-06-30 19:08 | ED.GENADULT ---
HPI - General Adult General Chief complaint: General Medical Stated complaint: sick since Saturday, fever, earache, swollen node Time Seen by Provider: 06/30/23 23:38 Source: patient Mode of arrival: ambulatory Limitations: no limitations History of Present Illness HPI narrative: Patient is a 33 year old assigned male at with a history of asthma presenting to the emergency department today with left sided testicular pain and a rash. Patient states that over the last 3 days he has had a rash to both of his hands and feet, a fever, and feeling generally unwell. Patient states that starting yesterday he has left sided testicular pain. Patient denies any dizziness, lightheadedness, abdominal pain, nausea, vomiting, chills, blurry vision, double vision, loss of vision, chest pain, difficulty breathing, shortness of breath, back pain, night sweats, pain with urination, increased urinary frequency, increased urinary urgency, blood in his urine or stool, syncope or a near syncopal episode, recent trauma or falls, bowel incontinence, bladder incontinence, bowel retention, bladder retention, or any other complaints at this time. Onset (ago): day(s) Severity: mild Relieving factors: none Exacerbating factors: none Associated symptoms: fever/chills and rash Treatments prior to arrival: other (erythromycin started by urgent care) Related Data Previous Rx's Medication Instructions Recorded Ventolin HFA 90 mcg/actuation 2 puff inhalation Q6H PRN 10/04/22 aerosol inhaler (albuterol sulfate) shortness of breath or wheezing 30 days #8 grams lorazepam 0.5 mg tablet 0.5 mg PO TID PRN anxiety 30 days 03/26/23 #90 tabs omeprazole 20 mg capsule,delayed 20 mg PO DAILY 90 days #90 caps 05/01/23 release fluticasone propionate 50 1 spray intranasal DAILY 30 days 05/10/23 mcg/actuation nasal #16 grams spray,suspension (Flonase Allergy Relief) azithromycin 250 mg tablet See Rx Instructions PO .COMPLEX #6 06/28/23 tabs triamcinolone acetonide 0.05 % 1 appl topical DAILY #110 grams 06/28/23 topical ointment doxycycline hyclate 100 mg tablet 100 mg PO BID 7 days #14 tabs 06/30/23 Allergies Allergy/AdvReac Type Severity Reaction Status Date / Time Penicillins [PENICILLINS] Allergy Unknown UNKNOWN- Verified 06/28/23 10:26 CHILDHOOD ALLERGY Review of Systems Constitutional: Constitutional: Reports no additional constitutional complaints, Denies chills, Reports fever(s) and Denies night sweats Eyes: Eyes: Reports no additional eye complaints, Denies blurry vision, Denies change in vision, Denies diplopia, Denies eye discharge, Denies loss of vision and Denies eye pain ENT: Denies dizziness Cardiovascular: Cardiovascular: Reports no additional cardiovascular complaints, Denies chest pain, Denies lightheadedness, Denies Loss of Consciousness and Denies dyspnea Respiratory: Respiratory: Reports no additional respiratory complaints and Denies dyspnea Gastrointestinal: Gastrointestinal: Reports no additional gastrointestinal complaints, Denies abdominal pain, Denies melena, Denies hematochezia, Denies change in bowel habits and Denies change in stool character Genitourinary: Genitourinary: Reports no additional male genitourinary complaints, Denies hematuria, Denies oliguria, Denies difficulty urinating, Denies dysuria, Denies urinary frequency, Denies urinary hesitancy, Denies urinary incontinence and Denies urinary urgency Comments: left sided testicular pain Musculoskeletal: Musculoskeletal: Reports no additional musculoskeletal complaints, Denies numbness and Denies tingling Integumentary/Breasts: Comments: rash to bilateral hands and feet Neurologic: Denies dizziness, Denies loss of vision, Denies numbness and Denies tingling Psychiatric: Psychiatric: Reports no additional psychiatric complaints Endocrine: Endocrine: Reports no additional endocrine complaints Hematologic/Lymphatic: Hematologic/Lymphatic: Reports no additional hematologic/lymphatic complaints Allergic/Immunologic: Allergic/Immunologic: Reports no additional allergic/immunologic complaints [facility] Past Medical History Attestation statement: The following information was validated with the patient. Source: old records reviewed and nursing notes reviewed Medical History STD exposure Lumbar pain Acute pharyngitis Rash Physical exam Chest pain Dyspnea Exposure to STD Nasal congestion Panic disorder High cholesterol Surgical History History of appendectomy Family History Family History Father No problems noted. Mother Heart murmur Sister No problems noted. Sister No problems noted. Sister No problems noted. Son No problems noted. Daughter No problems noted. Daughter No problems noted. Social History Social History Household Members: None Housing: House Alcohol intake: never Patient Tobacco Use Status: Former Tobacco user Tobacco use type: Cigarette Smoked in Last 30 Days: No e-Cigarette/Vaping Use: Never Used Second Hand Smoke Exposure: No Use of substances other than those prescribed or required for medical reasons: No Advance Directives: Yes Advance Directives on File: Yes Advance Directives Date on File: 06/20/20 service: No Current occupational status: unemployed Cognitive needs: No Hearing needs: No Vision needs: No Physical Exam ED Vital Signs: Vital Signs - 24 hr 06/30/23 19:01 06/30/23 23:45 Temperature 99.3 F 98.1 F Pulse Rate 109 H 89 Respiratory Rate 20 16 Blood Pressure 132/79 110/68 Pulse Oximetry 99 99 Oxygen Delivery Method Room Air Room Air BMI result Body Mass Index 27.9 Const General: cooperative, no acute distress, alert and awake Nutritional Appearance: well nourished Orientation/consciousness: patient oriented x3 Limitations: no limitations HENMT Head: Yes normal to inspection and Yes atraumatic Ears: hearing grossly normal bilaterally and external ears normal General nose exam: Normal external nose present, no nasal discharge noted and no epistaxis Face and sinus: Yes normal facial exam, No abrasion and No laceration Mouth: Normal oral and palatal mucosa present, no drooling and no muffled voice Eyes General: appearance normal, both eyes and all related structures Periorbital: periorbital findings normal Eyelids: Yes eyelids normal Conjunctivae: conjunctivae normal Pupils: Equal, round and reactive pupils present EOM: EOMs intact bilaterally Neck Neck: Yes normal visual inspection, Yes full ROM and Yes no lymphadenopathy Chest Chest palpation & inspection: normal inspection of the chest Resp Effort & Inspection: normal respiratory effort and able to speak in complete sentences GI Inspection: Yes normal to inspection Male General Exam: Yes normal external exam Neuro General: patient oriented x3 and moves all extremities Cranial nerves: Yes Equal, round and reactive pupils present Cognition (Neuro): normal cognition Motor exam (neuro): 5/5 motor strength present throughout Sensory Exam: Normal double simultaneous stimulation for sensation Coordination: [id number] test normal Extrem Other: rash present to the bilateral hands and feet consistent with hand foot mouth General: Yes full ROM and Yes capillary refill normal Psych Appearance: grossly normal Mental Status: mental status grossly normal Affect: normal affect Attitude: cooperative Thought process: Normal thought process present Thought content: Normal thought content present Insight: Good insight present (Psych) Course Course Course Narrative: RME: 33 yold male presents to the ED for fever, left testicular pain. patient states fever for four days and left testicular pain since yesterday. patient had negatvie strep test at urgent care. UA, CTNG, US scrotum, and covid ordered Medications Administered Discontinued Medications Generic Name Dose Route Start Last Admin Trade Name Michelle PRN Reason Stop Dose Admin Ceftriaxone Sodium 500 mg/ 0 mg 06/30/23 23:56 07/01/23 00:14 Lidocaine HCl 1 ml IM 06/30/23 23:57 500 kit ONCE ONE Administration Doxycycline Monohydrate 100 mg 06/30/23 23:56 07/01/23 00:14 Doxycycline Monohydrate 100 Mg Capsule PO 06/30/23 23:57 100 mg ONCE ONE Administration Medical Decision Making Medical Decision Making [facility] [place] Narrative: Patient is a 33 year old assigned male at with a history of asthma presenting to the emergency department today with a rash and testicular pain. Patient's physical exam was as noted in the physical exam portion of this note. Patient's rash is most consistent with hand, foot, mouth disease. Patient does have regular contact with children. Patient's testicular exam was unremarkable. Patient's blood work was unremarkable with HIV and Syphillis pending. Patient's urine showed no acute process with CTNG pending. Patient's scrotal US showed epididymoorchitis, small bilateral hydroceles, and small bilateral varicoceles. I explained my physical exam findings as well as all test results to the patient. I answered all questions asked by the patient. Patient received IM Ceftriaxone and PO Doxycycline while in the department. I stressed the importance of the patient taking his medication as prescribed. I stressed the importance of the patient following up with his primary care provider and a urologist. I stressed the importance of the patient returning to the emergency department immediately if his symptoms were to worsen or if he were to develop any dizziness, shortness of breath, difficulty breathing, chest pain, blurry vision, loss of vision, nausea, vomiting, abdominal pain, fever, chills, back pain, or any other complaints. Patient verbalized agreement and understanding with this treatment plan and discharge. Differential Diagnosis Differential Diagnoses: The differential diagnosis associated with the presentation includes Hand, foot, mouth disease Epididymoorchitis Hydroceles Varicoceles Testicular torsion Syphillis Gonorrhea Chlamydia HIV Admission/Observation Consideration of admission/observation: Escalation of care including admission/observation considered Patient would have been admitted to the hospital had his work up had any findings where hospital admission was appropriate and his clinical presentation warranted hospital admission. Lab Data MDM Lab Attestation statement: I reviewed the patient's lab results. My interpretation of these studies and their corresponding values is that they are grossly normal. Labs: Lab Results 06/30/23 06/30/23 07/01/23 Range/Units 19:16 19:19 00:24 Urine Color Yellow Urine Appearance Clear Urine pH 6.0 (5.0-9.0) Ur Specific [place] 1.010 (1.005-1.025) Urine Protein Negative (Neg-Trace) mg/dL Urine Glucose (UA) Negative (Negative) mg/dL Urine Ketones Negative (Negative) mg/dL Urine Blood Negative (Negative) Urine Nitrite Negative (Negative) Ur Leukocyte Esterase Negative (Negative) T.pallidum Ab (EIA) Nonreactive (Nonreactive) Chlam trachomat DNA PCR NOT DETECTED (Not Detect.) COVID-19 ([place]) Negative (Negative) COVID-[employer] [facility] See Note HIV 1&2 Ab/P24 Ag 4thGn (Nonreactive) Influenza Type A ([place]) Negative (Negative) Influenza Type B ([place]) Negative (Negative) Influenza A & B Note See Note N.gonorrhoeae DNA (PCR) NOT DETECTED (Not Detect.) 07/01/23 Range/Units 00:30 Urine Color Urine Appearance Urine pH (5.0-9.0) Ur Specific [place] (1.005-1.025) Urine Protein (Neg-Trace) mg/dL Urine Glucose (UA) (Negative) mg/dL Urine Ketones (Negative) mg/dL Urine Blood (Negative) Urine Nitrite (Negative) Ur Leukocyte Esterase (Negative) T.pallidum Ab (EIA) (Nonreactive) Chlam trachomat DNA PCR (Not Detect.) COVID-19 ([place]) (Negative) COVID-19 Clin Com HIV 1&2 Ab/P24 Ag 4thGn Nonreactive (Nonreactive) Influenza Type A ([place]) (Negative) Influenza Type B ([place]AN) (Negative) Influenza A & B Note N.gonorrhoeae DNA (PCR) (Not Detect.) Independent Interpretation I performed an independent interpretation of an: Ultrasound Interpretation: My interpretation is in agreement with the radiologist's impression of this imaging study. EXAMINATION: US SCROTUM CLINICAL INFORMATION: Left testicular pain and swelling.. COMPARISON: None available. TECHNIQUE: A sonogram of the scrotum was performed assessing perez-scale appearance and color Doppler flow. Spectral Doppler analysis of the arterial and venous flow were performed in the testes bilaterally. FINDINGS: RIGHT: Right testicle measures 4.5 x 2 x 3.4 cm, volume 16.2 mL. No focal testicular parenchymal lesions are visualized. Spectral Doppler analysis of the arterial and venous flow is increased in the right testis. Right epididymal head is mildly thickened, edematous. Small right-sided hydrocele. Small right-sided varicocele. Right epididymal Doppler flow is increased. LEFT: Left testicle measures 4.5 x 2.3 x 3.1 cm, volume 17.1 mL. No focal testicular parenchymal lesions are visualized. Spectral Doppler analysis of the arterial and venous flow is increased in the left testis. Left epididymal head is mildly thickened, edematous. Small right-sided hydrocele. Small left-sided varicocele. Left epididymal Doppler flow is increased. US/US scrotum IMPRESSION: 1. Increased Doppler flow in both the right and left testicle and epididymis consistent with epididymoorchitis. 2. Small bilateral hydroceles. 3. Small bilateral varicoceles. Dictated By: Solo Hogue MD Signed By: Electronically signed by Solo Hogue MD 06/30/23 0304 Radiology Impression Discussion of test interpretation with radiology: I have reviewed the radiologist's reading. Prescription Management I considered prescription management with: Antibiotic (patient prescribed an antibiotic.) Discharge Plan Discharge Clinical Impression: Hand, foot and mouth disease, Acute epididymo-orchitis, Hydrocele, Varicocele Patient Disposition: Home, Self-Care Instructions: Epididymo-Orchitis (ED), Hydrocele (ED), Varicocele (ED), Hand, Foot, and Mouth Disease (ED) Additional Instructions: Follow up with your primary care provider and a urologist. Return to the emergency department immediately if your symptoms worsen or if you develop any dizziness, shortness of breath, difficulty breathing, chest pain, blurry vision, loss of vision, nausea, vomiting, abdominal pain, fever, chills, back pain, or any other complaints. Prescriptions: New doxycycline hyclate 100 mg tablet 100 mg PO BID 7 Days Qty: 14 0RF No Action albuterol sulfate [Ventolin HFA] 90 mcg/actuation HFA aerosol inhaler 2 puff inhalation Q6H PRN (Reason: shortness of breath or wheezing) 30 Days Qty: 8 2RF lorazepam 0.5 mg tablet 0.5 mg PO TID PRN (Reason: anxiety) 30 Days Qty: 90 0RF omeprazole 20 mg capsule,delayed release(DR/EC) 20 mg PO DAILY 90 Days Qty: 90 0RF fluticasone propionate [Flonase Allergy Relief] 50 mcg/actuation spray,suspension 1 spray intranasal DAILY 30 Days Qty: 16 1RF Rx Instructions: administer into each nostril azithromycin 250 mg tablet See Rx Instructions PO .COMPLEX Qty: 6 0RF Rx Instructions: For 250 mg dose pack: take 500 mg today (day 1), then 250 mg for 4 days (days 2-5) PO triamcinolone acetonide 0.05 % ointment 1 appl topical DAILY Qty: 110 0RF Referrals: [facility] [Provider Group] (Call to establish and follow up with a urologist.) Marina Quan MD [Primary Care Provider] - Stand Alone Forms: Work/School Release Interventions: ED Discharge Assessment Last Done: 07/01/23 00:40 Discharge Date/Time: 07/01/23 00:41 Print Language: Lithuanian
[2023-06-30 19:27] LABS: Appearance Urine Clear; Color Urine Yellow; Glucose Urine UA Negative (Negative); Leukocyte Esterase Urine Negative (Negative); Nitrite Urine Negative (Negative); Urine Blood Negative (Negative); Urine Ketones Negative (Negative); Urine Protein Negative (Neg-Trace)
[2023-06-30 19:40] LABS: COVID-19 Test Negative (Negative); IDNOW Serial# 55D5AD1C
[2023-06-30 19:48] LABS: IDNOW Serial# BCCEAD1C; Influenza A Negative (Negative); Influenza B2 Negative (Negative)
[2023-06-30 23:45] VITALS: BP 110/68; PULSE 89; RESP 16; TEMP 36.7; O2SAT 99
[2023-07-01] MEDS: cefTRIAXone sodium 500 MG, Lidocaine HCl 1 % MPF 1 ML IM (00:14)
[2023-07-01] MEDS: Doxycycline Monohydrate 100 MG CAPSULE PO (00:14)
[2023-07-01 02:04] LABS: CT PCR NOT DETECTED (Not Detect.); NG PCR NOT DETECTED (Not Detect.)
[2023-07-01 07:58] LABS: Syphilis Screen Nonreactive (Nonreactive)
[2023-07-01 08:20] LABS: HIV AB/AG Nonreactive (Nonreactive); HIV Num 1 0.05 S/CO (0.00-0.99)
== END 2023-07-01 00:41 | disposition home or self-care (01) ==
PROVIDERS: Physician Assistant; Physician Assistant Medical; Emergency Provider Emergency Medicine Emergency Medical Services; PCP Internal Medicine
DX: B08.4 Enteroviral vesicular stomatitis with exanthem (principal); N43.3 Hydrocele, unspecified; I86.1 Scrotal varices; R50.9 Fever, unspecified; R10.2 Pelvic and perineal pain; R21 Rash and other nonspecific skin eruption; Z11.52 Encounter for screening for COVID-19; Z20.822 Contact with and (suspected) exposure to COVID-19; Z79.899 Other long term (current) drug therapy
CPT/HCPCS: 0353U; 36415; 76870; 81003; 86780; 87389; 87502; 87635; 93975; 96372; 99284; J0696

== ENCOUNTER 2023-07-04 11:02 | Outpatient (AMB) | payer OTHER, SELFPAY ==
[2023-07-04 11:16] VITALS: BP 128/80; PULSE 82; RESP 17; O2SAT 99; BMI 27.5
--- NOTE | 2023-07-04 11:16 | MHC.PC.OV ---
Vital Signs 07/04/23 11:16 Height 5 ft 9 in Weight 186 lb 4 oz BMI 27.5 BP 128/80 Blood Pressure Location Lt brachial Position Sitting Respiration 17 Pulse 82 Pulse Source Pulse Oximeter Pulse Oximetry (%) 99 Oxygen Delivery Method Room Air Intake Visit Reasons: [facility], 07/01 Intake Note: Patient is here to follow-up after a visit the emergency department at [facility] on 07/01/23 for rash and testicular pain and swelling. Pt needs urology referral for further evaluation. Cut To Length Operator Required: No Accompanied by: Self / Same As Patient Allergies Penicillins [PENICILLINS] Allergy (Unknown, Verified 07/04/23 11:29) UNKNOWN- CHILDHOOD ALLERGY Tobacco use date assessed: 10/03/22 Dental Screening Dental Screen Date: 07/04/23 Did you have a dental visit in the last 12 months?: Yes Did you have a dental problem in the last 6 months where you did not have access to dental care?: No Was dental information given to patient?: Patient has dentist HPI [facility], 07/01 HPI Details Patient is a 33-year-old male here today for a ER follow-up visit. Patient resented with scrotal pain and ultrasound showing--> increased Doppler flow in both the right and left testicle and epididymis consistent with epididymoorchitis. STD screening was negative and urinalysis without UTI.. He was started on doxycycline advised to follow-up with Urology. Of note did have azbh-aifi-osmug infection prior to his presentation was scrotal pain. Scrotal pain Likely related to a viral illness (Coxsackie virus) He reports today is feeling better though still has some scrotal pain when standing up. Of note did have mild varicoceles and hydroceles bilaterally.. He is interested in and seen a urologist. Otherwise does not report any urinary symptoms. [facility] Medical History STD exposure Lumbar pain Acute pharyngitis Rash Physical exam Chest pain Dyspnea Exposure to STD Nasal congestion Panic disorder High cholesterol Surgical History History of appendectomy Family History Father No problems noted. Mother Heart murmur Sister No problems noted. Sister No problems noted. Sister No problems noted. Son No problems noted. Daughter No problems noted. Daughter No problems noted. Social History Household Members: None Housing: House Alcohol intake: never Patient Tobacco Use Status: Former Tobacco user Tobacco use type: Cigarette e-Cigarette/Vaping Use: Never Used Second Hand Smoke Exposure: No Advance Directives Date on File: 06/20/20 service: No Current occupational status: unemployed Cognitive needs: No Hearing needs: No Vision needs: No Questionnaire Thrive Questionnaire Date Thrive assessed: 10/03/22 SHIV-7 AMB Questionnaire SHIV-7 Date SHIV - 7 assessed: 10/03/22 Source: Developed by Drs. Antonio Thompson, Sonam Isabel, Kody Hopson and colleagues, with an educational cortney from [employer]. Review of Systems Const Denies headache(s) Eyes Denies loss of vision ENT Denies vertigo, Denies dizziness, Denies headache(s) and Denies sore throat Card Denies chest pain, Denies leg edema and Denies lightheadedness Resp Denies cough, Denies hemoptysis and Denies wheezing GI Denies abdominal pain, Denies melena, Denies constipation, Denies diarrhea and Denies vomiting Denies dysuria, Denies urinary frequency and Denies urinary urgency Musc Denies arthralgias, Denies joint swelling, Denies numbness and Denies tingling Neuro Denies Abnormal speech present, Denies behavioral changes, Denies vertigo, Denies dizziness, Denies headache(s), Denies loss of vision, Denies memory loss, Denies numbness and Denies tingling Psych Denies anxiety, Denies behavioral changes, Denies depression, Denies memory loss and Denies panic attacks Rayray/Lymph Denies easy bleeding and Denies easy bruising Aller/Immun Denies wheezing Physical exam (Primary Care) Vital Signs: Last Vital Signs Pulse 82 07/04/23 11:16 Resp 17 07/04/23 11:16 BP 128/80 07/04/23 11:16 Pulse Ox 99 07/04/23 11:16 Oxygen Delivery Method Room Air 07/04/23 11:16 BMI result Body Mass Index 27.5 Tobacco/Smoking Status: Tobacco use Status Tobacco use date assessed 10/03/22 07/04/23 11:17 Patient Tobacco Use Status Former Tobacco user 07/04/23 11:17 Tobacco use type Cigarette 07/04/23 11:17 e-Cigarette/Vaping Use Never Used 07/04/23 11:17 Thrive Assessment: Date of Thrive Assessment Date Thrive assessed 10/03/22 07/04/23 11:17 Const General: healthy appearing, no acute distress, alert and awake Nutritional Appearance: well nourished Orientation/consciousness: oriented to person, oriented to place and oriented to time HENMT Ears: TM's normal bilaterally General nose exam: Normal nasal mucous membranes and turbinates present Eyes Conjunctivae: conjunctivae normal Sclerae: sclerae normal Pupils: Equal, round and reactive pupils present Neck Neck: Yes no lymphadenopathy and Yes no JVD Thyroid: Thyroid normal Carotids: no bruits Resp Effort & Inspection: normal respiratory effort and not tachypneic Auscultation: no crackles, no rales, no rhonchi and no wheezes Cardio Rate: regular rate Rhythm: regular rhythm Heart sounds: no murmurs and normal S1 and S2 GI Palpation (GI): Soft to palpation, nontender, no hepatomegaly and no splenomegaly Auscultation: normal bowel sounds Skin General skin exam: no rashes or lesions noted and dry skin Neuro General: oriented to person, oriented to place and oriented to time Cranial nerves: Yes Equal, round and reactive pupils present Speech: No Abnormal speech present Gait exam (Neuro): Normal gait present Motor exam (neuro): no tremor noted Extrem Right upper extremity: full ROM Left upper extremity: full ROM Right lower extremity: full ROM; no edema Left lower extremity: full ROM; no edema Psych Mental Status: mental status grossly normal Speech and movement: Normal speech and movement present Affect: normal affect Attitude: cooperative Thought process: Normal thought process present Assessment and Plan Assessment & Plan (1) Epididymitis: Code(s): N45.1 - Epididymitis Plan: As per HPI patient is presentation to the ER with for scrotal pain. Ultrasound did show epididymitis. STD screening and urinalysis without evidence of infection. Did have viral illness of eypm-kpyp-[id number] disease prior to his presentation with scrotal pain. Likely related. Will supply patient with a few days of prednisone for the inflammation. He will finish out the rest of doxycycline. Orders: Referrals Urology Referral N45.1 - Epididymitis Medications: New prednisone 40 mg (2 x 20 mg) PO DAILY 5 days 10 tabs 0RF N45.1 - Epididymitis Discontinued azithromycin Discontinued Reason: Doctor's Order For 250 mg dose pack: take 500 mg today (day 1), then 250 mg for 4 days (days 2-5) PO 6 tabs 0RF Coding Level of Care Code Est Pt Level 3 (75411) Diagnoses Epididymitis N45.1
== END 2023-07-04 12:14 | disposition home or self-care (01) ==
PROVIDERS: PCP Internal Medicine; Visit Provider Physician Assistant
DX: N45.1 Epididymitis (principal)
CPT/HCPCS: 99213

== ENCOUNTER 2024-02-20 14:40 | Outpatient (AMB) | payer OTHER, SELFPAY ==
[2024-02-20 14:43] VITALS: BP 112/80; BMI 28.5
--- NOTE | 2024-02-20 14:43 | A.OFFPC_ITS ---
Vital Signs 02/20/24 14:43 Height 5 ft 9 in Weight 193 lb BMI 28.5 BP 112/80 Blood Pressure Location Lt brachial Position Sitting Intake Visit Reasons: Constant heart burn Intake Note: Patient here for heartburn Nematology Teacher Required: No Accompanied by: Significant Other Allergies Penicillins [PENICILLINS] Allergy (Unknown, Verified 02/20/24 14:59) UNKNOWN- CHILDHOOD ALLERGY Medication List - Last Reconciled 02/20/24 by Marina Villeda MD fluticasone propionate 50 mcg/actuation (Flonase Allergy Relief) 1 spray intranasal DAILY 30 days lorazepam 0.5 mg PO TID PRN 30 days pantoprazole 40 mg PO DAILY 90 days Ventolin HFA 90 mcg/actuation (albuterol sulfate) 2 puffs inhalation Q6H PRN 30 days NS Tobacco use date assessed: 02/20/24 Dental Screening Dental Screen Date: 02/20/24 Did you have a dental visit in the last 12 months?: Yes Did you have a dental problem in the last 6 months where you did not have access to dental care?: No Was dental information given to patient?: Patient has dentist HPI HPI Comments History of Present Illness Details This is a 33-year-old male with mild major depression, anxiety, bipolar disorder, chronic GERD and allergic rhinitis that comes today accompanied by girlfriend complaining of GERD even by taking pantoprazole. He said pantoprazole works better than omeprazole but still symptoms are present and wakes him up at night. Depression and bipolar disorder has been in remission. Anxiety stable with benzodiazepines and he is aware can cause addiction and sedation as well as memory loss. On antihistamines for his allergic rhinitis. He also complains of daytime somnolence and severely dozing off while watching TV, sitting and reading, lying down in the afternoon after lunch while circumstances permit and writing as a passenger in a car for an hour with nonstop which gives an [place] score Scale of 12 and sleep study will be ordered. Denies any chest pain or shortness on breath. Will be referred to Gastroenterology. Has had GERD for over 5 years. [facility] Medical History (Updated 02/21/24 @ 10:08 by Marina Villeda MD) STD exposure Lumbar pain Acute pharyngitis Rash Physical exam Chest pain Dyspnea Exposure to STD Nasal congestion Panic disorder High cholesterol Surgical History History of appendectomy Family History Father No problems noted. Mother Heart murmur Sister No problems noted. Sister No problems noted. Sister No problems noted. Son No problems noted. Daughter No problems noted. Daughter No problems noted. Social History Household Members: None Housing: House Alcohol intake: never Patient Tobacco Use Status: Former Tobacco user Tobacco use type: Cigarette e-Cigarette/Vaping Use: Never Used Second Hand Smoke Exposure: No Advance Directives Date on File: 06/20/20 service: No Current occupational status: unemployed Cognitive needs: No Hearing needs: No Vision needs: No Questionnaire PHQ-9 Over the last 2 weeks, how often have you been bothered by any of the following problems? 1. Little interest or pleasure in doing things: not at all 2. Feeling down, depressed, or hopeless: not at all 3. Trouble falling or staying asleep, or sleeping too much: not at all 4. Feeling tired or having little energy: not at all 5. Poor appetite or overeating: not at all 6. Feeling bad about yourself - or that you are a failure or have let yourself or your family down: not at all 7. Trouble concentrating on things, such as reading the newspaper or watching television: not at all 8. Moving or speaking so slowly that other people could have noticed. Or the opposite - being so fidgety or restless that you have been moving around a lot more than usual: not at all 9. Thoughts that you would be better off or of hurting yourself in some way: not at all Total score: 0 Depression Screening Interpretation: Negative Depression Screening Done: Yes 61306 - PHQ-9 Billing: Yes Source: Developed by Drs. Antonio Thompson, Sonam Isabel, Kody Hopson and colleagues, with an educational cortney from [employer]. Thrive Questionnaire Date Thrive assessed: 02/20/24 I am a: Patient What is your living situation today?: I have a steady place to live Within the past 12 months, did the food you bought not last and you didn't have the money to get more?: Never true Within the past 12 months, did you worry whether your food would run out before you got money to buy more?: Never true Do you have trouble paying for medicines?: No Do you have trouble getting transportation to medical appointments?: No Do you have trouble paying your heating and electricity bill?: No Do you have trouble taking care of your child, family member or friend?: No Do you have trouble with day-to-day activities such as bathing, preparing meals, shopping, managing finances, etc.?: No Are you currently unemployed and looking for a job?: No Are you interested in more education?: No Please select the resources that you would like help with: None Currently or been in a relationship where the following occur: no concerns reported THRIVE Score: 0 AUDIT C Alcohol Use Questionnaire (AUDIT-C) 1. How often do you have a drink containing alcohol?: Never Total Score: 0 SHIV-7 AMB Questionnaire SHIV-7 Date SHIV - 7 assessed: 02/20/24 Feeling nervous, anxious, or on edge: 1 = Several days Not being able to stop or control worryin = Not at all Worrying too much about different things: 0 = Not at all Trouble relaxin = Not at all Being so restless that it is hard to sit still: 0 = Not at all Becoming easily annoyed or irritable: 0 = Not at all Feeling afraid as if something awful might happen: 0 = Not at all Total SHIV-7 score (0-4 normal; 5-9 mild; 10-14 moderate; 15-21 severe): 1 Source: Developed by Drs. Antonio Thompson, Sonam Isabel, Kody Hopson and colleagues, with an educational cortney from [employer]. SHIV-7 Assessment Billing SHIV-7 Assessment Tool: SHIV-7 Assessment 16095 Review of Systems Const All systems reviewed & are unremarkable except as noted in HPI and below Card Denies chest pain at rest, Denies chest pain with activity, Denies edema, Denies irregular heart rhythm, Denies claudication, Denies dyspnea, Denies dyspnea on exertion, Denies orthopnea, Denies paroxysmal nocturnal dyspnea and Denies slow heart rate Resp Denies cough, Denies dyspnea and Denies dyspnea on exertion GI Denies abdominal pain, Denies change in bowel habits, Denies excessive flatus, Reports heartburn, Denies nausea and Denies vomiting Physical exam (Primary Care) Vital Signs: Last Vital Signs BP 112/80 02/20/24 14:43 BMI result Body Mass Index 28.5 Tobacco/Smoking Status: Tobacco use Status Tobacco use date assessed 02/20/24 02/20/24 14:50 Patient Tobacco Use Status Former Tobacco user 02/20/24 14:50 Tobacco use type Cigarette 02/20/24 14:50 e-Cigarette/Vaping Use Never Used 02/20/24 14:50 PHQ-9: PHQ-9 Score PHQ-9: Total score 0 02/20/24 15:41 Depression Screening Interpretation: Negative Thrive Assessment: Date of Thrive Assessment Date Thrive assessed 02/20/24 02/20/24 14:50 Currently or been in a relationship where the following occur: no concerns reported Resp Effort & Inspection: normal respiratory effort Auscultation: clear to auscultation bilaterally Cardio Jugular venous distension: no JVD Rate: regular rate Rhythm: regular rhythm Heart sounds: S1 normal heart sound present and S2 normal heart sound present Extrem General: Yes full ROM Assessment and Plan Assessment & Plan (1) Mild recurrent major depression: Code(s): F33.0 - Major depressive disorder, recurrent, mild Plan: In remission. (2) Bipolar 1 disorder, depressed: Code(s): F31.9 - Bipolar disorder, unspecified Plan: In remission. (3) Chronic GERD: Code(s): K21.9 - Gastro-esophageal reflux disease without esophagitis Plan: Start Voquenza instead of pantoprazole. Referred to Gastroenterology. Upper GI series ordered. (4) Allergic rhinitis: Code(s): J30.9 - Allergic rhinitis, unspecified Qualifiers: Allergic rhinitis trigger: pollen Allergic rhinitis seasonality: seasonal Qualified Code(s): J30.1 - Allergic rhinitis due to pollen Plan: Continue antihistamines as needed. (5) SHIV (generalized anxiety disorder): Code(s): F41.1 - Generalized anxiety disorder Plan: Continue benzodiazepines as needed. (6) Daytime somnolence: Code(s): R40.0 - Somnolence Plan: Sleep study ordered. Orders: Orders [place] upper GI series 02/20/24 K21.9 - Gastro-esophageal reflux disease without esophagitis RT home sleep study 02/20/24 R40.0 - Somnolence Referrals Gastroenterology Referral K21.9 - Gastro-esophageal reflux disease without esophagitis Medications: New vonoprazan (Voquezna) 10 mg PO DAILY 90 days 90 tabs 0RF vonoprazan (Voquezna) 10 mg PO DAILY 90 days 90 tabs 0RF Refilled Ventolin HFA 90 mcg/actuation (albuterol sulfate) 2 puffs inhalation Q6H 30 days PRN 8 grams 2RF shortness of breath or wheezing NS lorazepam 0.5 mg PO TID 30 days PRN 90 tabs 0RF anxiety Coding Level of Care Code Est Pt Level 4 (15693) Complex EM visit Add On G2211 Diagnoses Mild recurrent major depression F33.0 Bipolar 1 disorder, depressed F31.9 Chronic GERD K21.9 Seasonal allergic rhinitis due to pollen J30.1 Allergic rhinitis trigger: pollen Allergic rhinitis seasonality: seasonal SHIV (generalized anxiety disorder) F41.1 Daytime somnolence R40.0 Additional Codes SHIV-7 Assessment Billing - SHIV-7 Assessment Tool: SHIV-7 Assessment 49159 ([id number]) Time Spent (min) 23
== END 2024-02-20 15:12 | disposition home or self-care (01) ==
PROVIDERS: PCP Internal Medicine; Visit Provider Internal Medicine
DX: K21.9 Gastro-esophageal reflux disease without esophagitis (principal); F31.9 Bipolar disorder, unspecified; J30.1 Allergic rhinitis due to pollen; R40.0 Somnolence
CPT/HCPCS: 99214; G2211

== ENCOUNTER → 2024-03-26 13:49 | Outpatient (REF) | payer OTHER, SELFPAY | LOC: HO.SL 13:49 | PROVIDERS: PCP Internal Medicine; Visit Provider Internal Medicine | DX: R40.0 Somnolence (principal); R06.83 Snoring | CPT/HCPCS: 95806 ==

== ENCOUNTER 2024-04-24 08:12 | Outpatient (REF) | payer OTHER, SELFPAY ==
[2024-04-24 09:24] LABS: Alanine Aminotransferase 30 U/L (0-40); Albumin Level 4.8 g/dL (3.5-5.0); Alkaline Phosphatase 48 U/L (39-117); Anion Gap 11 (12-20); Aspartate Amino Transferase 21 U/L (5-37); Bilirubin Total 1.3 mg/dL (0.0-1.0); Blood Urea Nitrogen 14 mg/dL (9-16); Calcium 10.1 mg/dL (8.4-10.2); Carbon Dioxide 30 mmol/L (22-29); Chloride 104 mmol/L (96-108); Estimated Glomerular Filt Rate > 60; Glucose Fasting 98 mg/dL (60-99); Potassium 4.1 mmol/L (3.3-5.1); Sodium 141 mmol/L (135-145)
== END 2024-04-24 08:13 | disposition home or self-care (01) ==
LOC: HO.LAB 08:12
PROVIDERS: PCP Internal Medicine; Visit Provider Internal Medicine
DX: R63.1 Polydipsia (principal)
CPT/HCPCS: 36415; 80053; 99202

== ENCOUNTER 2024-04-24 14:22 | Outpatient (AMB) | payer OTHER, SELFPAY ==
--- NOTE | 2024-04-24 14:26 | MHC.OFFVIS ---
Vital Signs 04/24/24 14:35 Height 5 ft 9 in Weight 188 lb 11.451 oz BMI 27.9 BP 126/76 Blood Pressure Location Rt brachial Position Sitting Pulse 84 Pulse Source Pulse Oximeter Pulse Oximetry (%) 96 Oxygen Delivery Method Room Air Intake Visit Reasons: Gastroesophageal reflux disease (GERD) Intake Note: Frantz presents in office today for a scheduled initial assessment. CC; Pt was previously rx'd omeprazole which did not have a positive therapeutic response. Pt was then rx'd pantoprazole which he is actively taking now and reports that it does help alleviate his sx, however; he does have frequent breakthroughs. Pt did not start the voquenza as his insurance does not cover it. Pt has upper GI series scheduled for 04/30/2024. Veterinary Livestock Inspector Required: No Allergies Penicillins [PENICILLINS] Allergy (Unknown, Verified 05/08/24 09:17) UNKNOWN- CHILDHOOD ALLERGY HPI HPI Gastroesophageal reflux disease (GERD): Details: 34-year-old male with past medical history of asthma, venous insufficiency, sciatica, chronic GERD, allergic rhinitis, depression, GERD, bipolar disorder, hypercholesteremia is here today for consultation. Patient has been dealing with acid reflux for very long time. Changed few different PPIs, currently on pantoprazole. Patient reports that he continues to have breakthrough events no med what he eats. Patient describes epigastric pain postprandially bloating and reflux. Patient denies any nausea or vomiting. Patient admits to epigastric pain sometimes even when not eating. Patient denies eating late at night for the most part. Occasional snacks at night time. Patient denies melena, hematochezia. Patient denies dysphagia or odynophagia. [facility] Medical History STD exposure Lumbar pain Acute pharyngitis Rash Physical exam Chest pain Dyspnea Exposure to STD Nasal congestion Panic disorder High cholesterol Surgical History History of appendectomy Family History Father No problems noted. Mother Heart murmur Sister No problems noted. Sister No problems noted. Sister No problems noted. Son No problems noted. Daughter No problems noted. Daughter No problems noted. Social History Household Members: None Housing: House Alcohol intake: never Patient Tobacco Use Status: Former Tobacco user Tobacco use type: Cigarette e-Cigarette/Vaping Use: Never Used Second Hand Smoke Exposure: No Advance Directives Date on File: 06/20/20 service: No Current occupational status: unemployed Cognitive needs: No Hearing needs: No Vision needs: No Review of Systems Const Denies weight gain and Denies weight loss ENT Reports no additional complaints, Denies dysphagia and Denies odynophagia Card Reports no additional complaints Resp Reports no additional complaints GI Reports abdominal pain (Epigastric), Denies belching, Denies melena, Reports bloating, Denies change in bowel habits, Denies dysphagia, Denies excessive flatus, Reports dyspepsia, Reports heartburn, Denies diarrhea, Denies loose stools, Denies nausea, Denies odynophagia and Denies vomiting Reports no additional complaints Musc Reports no additional complaints Neuro Reports no additional complaints Psych Reports no additional complaints Endo Reports no additional complaints Physical Exam Vital Signs: Last Vital Signs Pulse 84 04/24/24 14:35 BP 126/76 04/24/24 14:35 Pulse Ox 96 04/24/24 14:35 Oxygen Delivery Method Room Air 04/24/24 14:35 BMI result Body Mass Index 27.9 Const General: healthy appearing, no acute distress and well developed Nutritional Appearance: well nourished Orientation/consciousness: patient oriented x3 Resp Effort & Inspection: normal respiratory effort, able to speak in complete sentences, no tracheal deviation and symmetric chest movement Auscultation: clear to auscultation bilaterally Cardio Rate: regular rate GI Inspection: Yes normal to inspection and No distended Palpation (GI): Soft to palpation, not firm, nontender and No hepatosplenomegaly present Auscultation: normal bowel sounds General: Yes no CVA tenderness Back/Spine/Pelvis Back: no CVA tenderness Skin General skin exam: elasticity normal, turgor normal and dry skin Neuro General: patient oriented x3 Psych Appearance: grossly normal Mental Status: mental status grossly normal Assessment & Plan Assessment & Plan (1) Chronic GERD: Code(s): K21.9 - Gastro-esophageal reflux disease without esophagitis Category: Medical (2) Postprandial epigastric pain: Code(s): R10.13 - Epigastric pain (3) Abdominal bloating: Code(s): R14.0 - Abdominal distension (gaseous) Plan Patient will hold pantoprazole, will come back for H pylori testing. Can take famotidine in the meantime. Will hold H2 osiel 24-48 hours before NPO for 1 hour before the test. Patient was encouraged to avoid dietary triggers and late night snacking. Staying upright for minimum 3 hours after meals discussed with him. Will check vitamin-D level, B12, folate, transglutaminase and lipase. Patient will return in 2 months, sooner on as needed basis. He will be sent for upper endoscopy to rule out gastritis, duodenitis, gastric or peptic ulcer, esophagitis, Smith's. Patient is agreeable to current plan of care and verbalizes understanding of instructions. He was given the opportunity to ask questions and all questions answered. Thank you for allowing me to participate in his care Orders: Orders Vitamin D 25-OH (D2 and D3) 04/30/24 E55.9 - Vitamin D deficiency, unspecified Lipase 04/30/24 R10.9 - Unspecified abdominal pain Transglutaminase Ab IgG 04/30/24 R10.9 - Unspecified abdominal pain H Pylori Breath Test 04/24/24 K21.9 - Gastro-esophageal reflux disease without esophagitis Vitamin B12 and Folate 04/30/24 R19.7 - Diarrhea, unspecified Transglutaminase IgA 04/30/24 R10.9 - Unspecified abdominal pain Medications: New famotidine (Pepcid) 20 mg PO BID 60 tabs 3RF K29.70 - Gastritis, unspecified, without bleeding Coding Level of Care Code New Pt Level 3 (43225) Diagnoses Chronic GERD K21.9 Postprandial epigastric pain R10.13 Abdominal bloating R14.0 Time Spent (min) 40 Comment 30 minutes spent with patient and additional 10 minutes spent reviewing his records
[2024-04-24 14:35] VITALS: BP 126/76; PULSE 84; O2SAT 96; BMI 27.9
== END 2024-04-24 15:21 | disposition home or self-care (01) ==
PROVIDERS: PCP Internal Medicine; Visit Provider Nurse Practitioner Family
DX: K21.9 Gastro-esophageal reflux disease without esophagitis (principal); R10.13 Epigastric pain; R14.0 Abdominal distension (gaseous)
CPT/HCPCS: 99203

== ENCOUNTER 2024-04-30 07:52 | Outpatient (REF) | payer OTHER, SELFPAY ==
--- NOTE | ~2024-04-30 | FL_ITS ---
EXAMINATION: XR FLUOROSCOPY UPPER GI WITH AIR CLINICAL INFORMATION: Reflux COMPARISON: None TECHNIQUE: Fluoroscopic air contrast upper GI examination was performed utilizing standard techniques with thin and thick barium and effervescent granules. Numerous spot images were obtained. FINDINGS: Dual and single contrast images of the esophagus demonstrate a normal caliber and contour. There is a granular appearance to the esophageal mucosa which suggests esophagitis. No evidence of stricture, mass, or ulcerations identified. Esophageal peristalsis was normal. A very small type I hiatal hernia is present. Significant gastroesophageal reflux is seen up to the thoracic inlet. Dual contrast and single contrast images of the stomach demonstrated a normal contour. The gastric rugal folds have a mildly thickened appearance, which suggests gastritis. There are a few foci of contrast pooling in the posterior wall of the body of the stomach that may represent small superficial aphthous ulcers. No masses are seen. Contrast freely passed into the gastric antrum and duodenal bulb without delay. Single and air-contrast images of the duodenal bulb demonstrate no abnormality. The duodenal sweep has a normal appearance, course, and mucosal fold appearance. The imaged proximal jejunum has a normal fold pattern and caliber. FLUOROSCOPY TIME: 3 minutes 7 seconds Number of Spot Images: 6 Number of Cine: 13 DOSE AREA PRODUCT: 1867 uGy-m2 (microgray-meter squared) FL/FL upper GI w air IMPRESSION: 1. Granular appearance of the esophageal mucosa which represents esophagitis. 2. Very small type I hiatal hernia with significant gastroesophageal reflux 3. Mildly thickened gastric rugal folds. In addition there are a few foci of contrast pooling in the posterior wall the body the stomach. These findings are suggestive of erosive gastritis. Recommend correlation with EGD. This procedure was performed by Xiang Monk PA-C, and supervised by Dr. Gaston
[2024-04-30 09:47] LABS: Lipase 20 U/L (8-78)
[2024-04-30 10:25] LABS: Folate 7.5 ng/mL (> or = 4.0); Vitamin B12 661 pg/mL (200-900)
[2024-05-01 21:13] LABS: Transglutaminase Ab IgG <1.0 U/mL; Transglutaminase IgA <1.0 U/mL
[2024-05-05 17:38] LABS: Vitamin D 25-OH, D2 <4 ng/mL; Vitamin D 25-OH, D3 30 ng/mL; Vitamin D 25-OH, Total 30 ng/mL (30-100)
== END 2024-04-30 07:53 | disposition home or self-care (01) ==
LOC: HO.XRAY 07:52
PROVIDERS: Absent Provider Nurse Practitioner Family; PCP Internal Medicine; Visit Provider Internal Medicine
DX: E55.9 Vitamin D deficiency, unspecified (principal); R10.9 Unspecified abdominal pain; R19.7 Diarrhea, unspecified; K21.9 Gastro-esophageal reflux disease without esophagitis
CPT/HCPCS: 36415; 74246; 82306; 82607; 82746; 83690; 86364

== ENCOUNTER → 2024-04-30 07:55 | Outpatient (BNV) | payer OTHER, SELFPAY | PROVIDERS: Absent Provider Nurse Practitioner Family; PCP Internal Medicine; Visit Provider Physician Assistant Surgical | DX: K21.9 Gastro-esophageal reflux disease without esophagitis (principal) | CPT/HCPCS: 74246 ==

== ENCOUNTER 2024-05-08 08:54 | Outpatient (AMB) | payer OTHER, SELFPAY ==
--- NOTE | 2024-05-08 09:17 | A.OFFVIS_ITS ---
Intake Visit Reasons: h.pylori testing Allergies Penicillins [PENICILLINS] Allergy (Unknown, Verified 05/08/24 09:17) UNKNOWN- CHILDHOOD ALLERGY [facility] Medical History STD exposure Lumbar pain Acute pharyngitis Rash Physical exam Chest pain Dyspnea Exposure to STD Nasal congestion Panic disorder High cholesterol Surgical History History of appendectomy Family History Father No problems noted. Mother Heart murmur Sister No problems noted. Sister No problems noted. Sister No problems noted. Son No problems noted. Daughter No problems noted. Daughter No problems noted. Social History Household Members: None Housing: House Alcohol intake: never Patient Tobacco Use Status: Former Tobacco user Tobacco use type: Cigarette e-Cigarette/Vaping Use: Never Used Second Hand Smoke Exposure: No Advance Directives Date on File: 06/20/20 service: No Current occupational status: unemployed Cognitive needs: No Hearing needs: No Vision needs: No Coding
--- NOTE | 2024-05-08 09:18 | AM.OFFVISNUR ---
Intake Visit Reasons: h.pylori testing Allergies Penicillins [PENICILLINS] Allergy (Unknown, Verified 05/08/24 09:17) UNKNOWN- CHILDHOOD ALLERGY Nursing Note Patient presents for collection of H Pylori breath test. Patient has been fasting for 1 hour (nothing to eat, drink, no chewing gum or smoking) has not taken any antacid medication for at least 2 weeks and has no allergies to artificial sweeteners.?? Assessment & Plan Assessment & Plan (1) Chronic GERD: Code(s): K21.9 - Gastro-esophageal reflux disease without esophagitis Category: Medical Plan Patient presents for collection of H Pylori breath test. Patient has been fasting for 1 hour (nothing to eat, drink, no chewing gum or smoking) has not taken any antacid medication for at least 2 weeks and has no allergies to artificial sweeteners.???This test checks for an overgrowth of bacteria in your stomach. We all have bacteria but some may have more than others. It is treatable. if the test comes back negative there is nothing else to do. If the test result is positive we will treat you with 2 antibiotics and a medication to decrease the acid in your stomach (PPI) for 2 weeks. Two weeks after you have completed the treatment we will retest you to make sure the overgrowth has resolved. Patient Instructions: Process for specimen collection and reason for testing was explained to the patient. Specimen collection. Patient instructed to take a deep breath and then exhale into the blue bag, filling it up as much as possible. Patient instructed to drink a mixture of water and the artificial sweetener with a straw. A 15 minute wait period was observed. Patient instructed to take a deep breath and then exhale into the pink bag, filling it up as much as possible.??
== END 2024-05-08 10:58 | disposition home or self-care (01) ==
PROVIDERS: PCP Internal Medicine; Visit Provider Nurse Practitioner Family
DX: K21.9 Gastro-esophageal reflux disease without esophagitis (principal)

== ENCOUNTER 2024-05-08 08:54 | Outpatient (REF) | payer OTHER, SELFPAY ==
[2024-05-09 14:35] LABS: H Pylori Breath Test Negative (Negative)
== END 2024-05-08 08:55 | disposition home or self-care (01) ==
LOC: HO.LNP 08:54
PROVIDERS: PCP Internal Medicine; Visit Provider Nurse Practitioner Family
DX: K21.9 Gastro-esophageal reflux disease without esophagitis (principal)
CPT/HCPCS: 83013; 99211

== ENCOUNTER 2024-07-27 17:07 | Outpatient (AMB) | payer OTHER, SELFPAY ==
--- NOTE | 2024-07-27 17:12 | MHC.PC.OV ---
Vital Signs 07/27/24 17:13 Height 5 ft 9 in Weight 193 lb BMI 28.5 BP 122/80 Blood Pressure Location Lt brachial Position Sitting Intake Visit Reasons: Annual PE Intake Note: Patient here for an Annual Physical Exam Extermination Supervisor Required: No Accompanied by: Self / Same As Patient Allergies Penicillins [PENICILLINS] Allergy (Unknown, Verified 07/27/24 17:27) UNKNOWN- CHILDHOOD ALLERGY Medication List - Last Reconciled 07/27/24 by Marina Villeda MD famotidine 20 mg PO BID fluticasone propionate 50 mcg/actuation (Flonase Allergy Relief) 1 spray intranasal DAILY 30 days lorazepam 0.5 mg PO TID PRN 30 days Ventolin HFA 90 mcg/actuation (albuterol sulfate) 2 puffs inhalation Q6H PRN 30 days NS Tobacco use date assessed: 02/20/24 Dental Screening Dental Screen Date: 02/20/24 HPI HPI Comments History of Present Illness Details This is 34-year-old male with bipolar depression that comes for his physical exam. Bipolar depression is follow by Psychiatry. No chest pain or shortness on breath. Complains of diffuse joint pain. No fever or rash. [facility] Medical History (Updated 07/27/24 @ 17:38 by Marina Villeda MD) Physical exam STD exposure Lumbar pain Acute pharyngitis Rash Chest pain Dyspnea Exposure to STD Nasal congestion Panic disorder High cholesterol Surgical History History of appendectomy Family History (Updated 07/27/24 @ 17:30 by Marina Villeda MD) Father No problems noted. Mother Heart murmur Breast cancer Sister No problems noted. Sister No problems noted. Sister No problems noted. Son No problems noted. Daughter No problems noted. Daughter No problems noted. Social History Household Members: None Housing: House Alcohol intake: never Patient Tobacco Use Status: Former Tobacco user Tobacco use type: Cigarette e-Cigarette/Vaping Use: Never Used Second Hand Smoke Exposure: No Advance Directives Date on File: 06/20/20 service: No Current occupational status: unemployed Cognitive needs: No Hearing needs: No Vision needs: No Questionnaire PHQ-9 Over the last 2 weeks, how often have you been bothered by any of the following problems? 1. Little interest or pleasure in doing things: several days 2. Feeling down, depressed, or hopeless: several days 3. Trouble falling or staying asleep, or sleeping too much: not at all 4. Feeling tired or having little energy: more than half the days 5. Poor appetite or overeating: not at all 6. Feeling bad about yourself - or that you are a failure or have let yourself or your family down: not at all 7. Trouble concentrating on things, such as reading the newspaper or watching television: not at all 8. Moving or speaking so slowly that other people could have noticed. Or the opposite - being so fidgety or restless that you have been moving around a lot more than usual: not at all 9. Thoughts that you would be better off or of hurting yourself in some way: not at all Total score: 4 Depression Screening Interpretation: Positive Depression Screening Follow-up: Existing condition, Community Mental Health Worker F/U and Follow-up Visit Requested Depression Screening Done: Yes 94730 - PHQ-9 Billing: Yes Source: Developed by Drs. Antonio Thompson, Sonam Isabel, Kody Hopson and colleagues, with an educational cortney from [employer]. Thrive Questionnaire Date Thrive assessed: 07/27/24 I am a: Patient What is your living situation today?: I have a steady place to live Within the past 12 months, did the food you bought not last and you didn't have the money to get more?: Never true Within the past 12 months, did you worry whether your food would run out before you got money to buy more?: Never true Do you have trouble paying for medicines?: No Do you have trouble getting transportation to medical appointments?: No Do you have trouble paying your heating and electricity bill?: No Do you have trouble taking care of your child, family member or friend?: No Do you have trouble with day-to-day activities such as bathing, preparing meals, shopping, managing finances, etc.?: No Are you currently unemployed and looking for a job?: No Are you interested in more education?: Yes Please select the resources that you would like help with: Education Currently or been in a relationship where the following occur: No concerns reported THRIVE Score: 0 AUDIT C Alcohol Use Questionnaire (AUDIT-C) 1. How often do you have a drink containing alcohol?: Never Total Score: 0 Score Reviewed/Action Taken: No SHIV-7 AMB Questionnaire SHIV-7 Date SHIV - 7 assessed: 02/20/24 Feeling nervous, anxious, or on edge: 2 = More than half the days Not being able to stop or control worryin = Not at all Worrying too much about different things: 0 = Not at all Trouble relaxin = Several days Being so restless that it is hard to sit still: 0 = Not at all Becoming easily annoyed or irritable: 0 = Not at all Feeling afraid as if something awful might happen: 0 = Not at all Total SHIV-7 score (0-4 normal; 5-9 mild; 10-14 moderate; 15-21 severe): 3 Source: Developed by Drs. Antonio Thompson, Sonam Isabel, Kody Hopson and colleagues, with an educational cortney from [employer]. SHIV-7 Assessment Billing SHIV-7 Assessment Tool: SHIV-7 Assessment 18745 Review of Systems Const All systems reviewed & are unremarkable except as noted in HPI and below Card Denies chest pain at rest, Denies chest pain with activity, Denies edema, Denies irregular heart rhythm, Denies claudication, Denies dyspnea, Denies dyspnea on exertion, Denies orthopnea, Denies paroxysmal nocturnal dyspnea and Denies slow heart rate Resp Denies cough, Denies dyspnea and Denies dyspnea on exertion GI Denies abdominal pain, Denies change in bowel habits, Denies excessive flatus, Reports heartburn, Denies nausea and Denies vomiting Denies urinary hesitancy, Denies urinary incontinence and Denies urinary urgency Musc Denies abnormal gait, Denies atrophy, Denies deformity, Reports arthralgias and Denies limited range of motion Skin/Breast Denies bleeding lesions, Denies changing lesions and Denies rash Neuro Denies abnormal gait and Denies lack of coordination Physical exam (Primary Care) Vital Signs: Last Vital Signs BP 122/80 07/27/24 17:13 BMI result Body Mass Index 28.5 Tobacco/Smoking Status: Tobacco use Status Tobacco use date assessed 02/20/24 07/27/24 17:18 Patient Tobacco Use Status Former Tobacco user 07/27/24 17:18 Tobacco use type Cigarette 07/27/24 17:18 e-Cigarette/Vaping Use Never Used 07/27/24 17:18 PHQ-9: PHQ-9 Score PHQ-9: Total score 4 07/27/24 17:18 Depression Screening Interpretation: Positive Depression Screening Follow-up: Existing condition, Community Mental Health Worker F/U and Follow-up Visit Requested Thrive Assessment: Date of Thrive Assessment Date Thrive assessed 07/27/24 07/27/24 17:18 Currently or been in a relationship where the following occur: No concerns reported HENMT Head: Yes normal to inspection, Yes normocephalic and Yes atraumatic Ears: external ears normal Eyes General: appearance normal, both eyes and all related structures Eyelids: Yes eyelids normal Conjunctivae: conjunctivae normal Neck Neck: Yes normal visual inspection and Yes supple Resp Effort & Inspection: normal respiratory effort Auscultation: clear to auscultation bilaterally Cardio Jugular venous distension: no JVD Rate: regular rate Rhythm: regular rhythm Heart sounds: S1 normal heart sound present and S2 normal heart sound present GI Inspection: Yes normal to inspection Palpation (GI): Soft to palpation and nontender Auscultation: normal bowel sounds Skin General skin exam: no rashes or lesions noted Neuro General: no focal motor deficits Extrem General: Yes full ROM Psych Appearance: grossly normal Office Procedures Flu Questionnaire Does the patient have a severe egg allergy?: No Immunizations Fluarix Triv [id number] (PF) 45 mcg (15 mcg x 3)/0.5 mL IM syringe Performing Provider: Marina Villeda MD [facility] Documented (not given) by: LISA Oliveira on 07/27/24 17:18 Reason Not Given: Patient Refused Coding Level of Care Code Est Pt Level 3 (49989) Est Pt Prev Care 18-39y(15705) Diagnoses Physical exam Z00.00 Polyarthralgia M25.50 Bipolar 1 disorder, depressed F31.9 Additional Codes PHQ-9 - 46666 - PHQ-9 Billing: Yes ([id number]) SHIV-7 Assessment Billing - SHIV-7 Assessment Tool: SHIV-7 Assessment 05037 ([id number]) Time Spent (min) 32 Assessment & Plan Assessment & Plan (1) Physical exam: Code(s): Z00.00 - Encounter for general adult medical examination without abnormal findings Category: Medical Plan: Repeat in a year. (2) Polyarthralgia: Code(s): M25.50 - Pain in unspecified joint Category: Medical Plan: Labs ordered. Referred to rheumatology. (3) Bipolar 1 disorder, depressed: Code(s): F31.9 - Bipolar disorder, unspecified Category: Medical Plan: Continue counseling. Orders: Orders Lipid Panel Today E78.5 - Hyperlipidemia, unspecified Cyclic Citrullinated Peptide Today M25.50 - Pain in unspecified joint CRP High Sensitivity Today M25.50 - Pain in unspecified joint Influenza 3270-4050 Immunization Today Z23 - Encounter for immunization Complete Blood Count Auto Diff Today M25.50 - Pain in unspecified joint Comprehensive [place]. Panel Fast Today M25.50 - Pain in unspecified joint Erythrocyte Sedimentation Rate Today M25.50 - Pain in unspecified joint Rheumatoid Factor Today M25.50 - Pain in unspecified joint Referrals Rheumatology Referral M25.50 - Pain in unspecified joint
[2024-07-27 17:13] VITALS: BP 122/80; BMI 28.5
== END 2024-07-27 17:36 | disposition home or self-care (01) ==
PROVIDERS: PCP Internal Medicine; Visit Provider Internal Medicine
DX: Z00.00 Encounter for general adult medical examination without abnormal findings (principal); M25.50 Pain in unspecified joint; F31.9 Bipolar disorder, unspecified

== ENCOUNTER → 2024-07-27 17:07 | Outpatient (BNVA) | payer OTHER, SELFPAY | PROVIDERS: PCP Internal Medicine; Visit Provider Internal Medicine | DX: Z00.01 Encounter for general adult medical examination with abnormal findings (principal); M25.50 Pain in unspecified joint; F31.0 Bipolar disorder, current episode hypomanic | CPT/HCPCS: 96127; 99212; 99395 ==

== ENCOUNTER 2024-08-22 08:40 | Outpatient (REF) | payer OTHER, SELFPAY ==
[2024-08-22 09:11] LABS: MANUAL DIFF FLAG NO
[2024-08-22 10:22] LABS: Basophils Absolute Auto 0.1 X10*3/uL (0.0-0.2); Basophils Percent Auto 0.6 % (0-2); Eosinophils Absolute Auto 0.1 X10*3/uL (0.0-0.4); Eosinophils Percent Auto 0.8 % (0-4); Hematocrit 48.5 % (42.0-52.0); Hemoglobin 17.1 g/dl (14.0-18.0); Imm Gran Abs Auto 0.03 X10*3/uL (0.00-0.03); Imm Gran Pct Auto 0.4 % (0.0-0.4); Lymphocytes Absolute Auto 1.5 X10*3/uL (1.2-4.9); Lymphocytes Percent Auto 19.6 % (20-40); Mean Corpuscular HGB Conc 35.3 g/dl (31.0-36.0); Mean Corpuscular Hemoglobin 28.8 pg (27.0-33.0); Mean Corpuscular Volume 81.8 fL (80.0-98.0); Mean Platelet Volume 10.1 fL (9.4-12.4); Monocytes Absolute Auto 0.7 X10*3/uL (0.1-1.2); Neutrophils Absolute Auto 5.4 x10*3/uL (2.0-8.3); Neutrophils Percent Auto 69.6 % (45-73); Platelet Count 331 X10*3/uL (160-400); Red Blood Count 5.93 X10*6/uL (4.60-5.80); Red Cell Distribution Width 12.2 % (11.0-16.0); White Blood Count 7.8 X10*3/uL (4.8-10.8)
[2024-08-22 10:49] LABS: Rheumatoid Factor < 13.0 IU/mL (<15.0)
[2024-08-22 10:58] LABS: Alanine Aminotransferase 57 U/L (0-40); Albumin Level 4.8 g/dL (3.5-5.0); Alkaline Phosphatase 54 U/L (39-117); Anion Gap 13 (12-20); Aspartate Amino Transferase 31 U/L (5-37); Bilirubin Total 1.1 mg/dL (0.0-1.0); Blood Urea Nitrogen 14 mg/dL (9-16); Carbon Dioxide 28 mmol/L (22-29); Chloride 104 mmol/L (96-108); Cholesterol 284 mg/dL (<200); Estimated Glomerular Filt Rate > 60; Glucose Fasting 91 mg/dL (60-99); HDL Cholesterol 44 mg/dL (>40); LDL Cholesterol Calculated 220 mg/dL (<100); Potassium 4.3 mmol/L (3.3-5.1); Sodium 141 mmol/L (135-145); Total Protein 8.2 g/dL (6.5-8.0); Triglycerides 101 mg/dL (<150)
[2024-08-22 11:11] LABS: Erythrocyte Sedimentation Rate 2 MM/HR (0-15)
[2024-08-24 13:54] LABS: CRP High Sensitivity 0.8 mg/L
[2024-08-25 13:33] LABS: Cyclic Citrullinated Peptide <16 UNITS
--- OUTSIDE RECORDS SUMMARY | 2024-08-26 11:41 | XMS_ITS | Data Portability ---
Author Organization [facility], [address] Address [address] [place] [address] Assessment No assessment recorded. Plan of Treatment Reminders Order Date Submit Date Provider Last Modified By Organization Details Last Modified Time Details Appointments None record ed. Lab None record ed. Referral None record ed. Procedures None record ed. Surgeries None record ed. Imaging None record ed. Medication Orders None record ed. Patient TargetsNo targets recorded. Patient InstructionsNo instructions recorded. Reason for Referral None Reported. Procedures Surgical History Date Name Laterality Status Provider Name and Address Organization Details Recorded Time -UDS Send Out Template DOT completed Tani [facility]iran[facility] 01/26/2023 11:13:01 Imaging Results None recorded. Procedure Notes None recorded. Medical Equipment None Reported. Medications Name Sig Start Date Stop Date Status Note LastModified by Organization Details LastModified Time azithromycin 250 mg tablet TAKE 2 TABLETS BY MOUTH TODAY, THEN TAKE 1 TABLET DAILY FOR 4 DAYS active Not Available Not Available No t Available ibuprofen 800 mg tablet TAKE 1 TABLET BY MOUTH EVERY 8 HOURS NEEDED FOR PAIN FOR 7 DAYS active Not Available Not Available No t Available lorazepam 0.5 mg tablet TAKE 1 TABLET BY MOUTH THREE TIMES A DAY NEEDED FOR ANXIETY FOR 3 DAYS active Not Available Not Available N ot Available triamcinolon e acetonide 0.1 % topical ointment APPLY TO LEGS TWICE A DAY NEEDED FOR FLARES, DECREASE SYMPTOMS IMPROVE active Not Available Not Available No t Available prednisone 50 mg tablet TAKE 1 TABLET BY MOUTH EVERY DAY active Not Available Not Available No t Available omeprazole 20 mg capsule,carlos yed release TAKE 1 CAPSULE BY MOUTH EVERY DAY active Not Available Not Available No t Available hydroxyzine HCl 10 mg tablet active Not Available Not Available Not Available fluticasone propionate 50 mcg/actuatio n nasal spray,suspen jack SPRAY 1 SPRAY INTRANASALL Y DAILY FOR 30 DAYS ADMINISTER INTO EACH NOSTRIL active Not Available Not Available No t Available Ventolin HFA 90 mcg/actuatio n aerosol inhaler INHALE 2 PUFFS BY MOUTH EVERY 6 HOURS NEEDED FOR WHEEZE/SHOR TNESS OF BREATH active Not Available Not Available No t Available Vitals None Recorded Social History None recorded. Functional Status None recorded. Mental Status None recorded. Family History Nothing Reported. Medical History No medical history recorded. Past Encounters Encounter ID Performer Location Encounter Start Date Encounter Closed Date Diagnosis/Indication Diagnosis SNOMED-CT Code Diagnosis ICD10 Code [id number] [address] [place] [address] 01/13/2017 12:58:29 01/13/2017 13:47:53 [id number] [address] [place] [address] 09/22/2018 13:23:12 09/22/2018 13:56:48 [id number] [address] [place] [address] 07/15/2020 11:45:25 07/15/2020 13:02:07 [id number] [place] [address] [place] [address] 01/26/2023 10:52:15 01/26/2023 11:13:37 History and physical examination, occupation [id number] Z02.1 Health Concerns Section Related Observation LastModified by Organization Detai ls LastModified Time None Recorded Concern Status LastModified by Organization Details LastModified Time None Recorded Advance Directives Directive None Recorded Payers Encounter Date Sequence Insurance Name Policy Number Policy Davis Covered Member ID Davis Member ID Guarantor Name 01/13/2017 2 [place] [facility] Frantz Granados [id number] Frantz Granados 09/22/2018 1 [facility] [employer] - HEALTH NET PLAN (MEDICAID HMO) [id number] Frantz Granados [id number] Frantz Granados 09/22/2018 2 [place] [facility] Frantz Granados [id number] Frantz Granados 07/15/2020 2 [place] [facility] Frantz Granados [id number] Frantz Granados 01/26/2023 2 [place] [facility] Frantz Granados [id number] Frantz Granados 01/26/2023 [employer] KARIME Granados
--- OUTSIDE RECORDS SUMMARY | 2024-08-26 11:41 | XMS_ITS | Continuity of Care Document ---
Author Organization [facility] Address [address] [place] [address] [address] [place] [id number] Phone Care Team Providers Care Assemblyman Or Woman Name Role Phone Luciano LOPEZ, PATRICIA, BELÉN, Antonio Unavailable U navailable Allergies, Adverse Reactions, Alerts Substance Reaction Status Criticality PENICILLIN Active No Information Procedures Procedure Date Office/Outpt E&M Established 15 Mins Nov Duplex Scan-extrem Veins; Duplex Scan-extrem Veins; / 24 Endovenous Laser, 1st Vein Endovenous Laser, 1st Vein Endovenous laser vein addon Inj Scleros Solut; Mx Veins 1 4 Ultrason Guidan Needle Bx-rad 4 Office/Outpt E&M Established 15 Mins - T elemedicine Duplex Scan-extrem Veins; [facility]/ 23 Offic Cons New/estab Mod 40 Mi 23 Advance Directives Directive Yes / No Effective Date File Name No Information Encounters Encounter Description Practice Location Reason(s) For Visit Diagnoses Date Provider Providers Copied on Encounter Office/Outpt E&M Established 15 Mins [facility], [address] [place] [address] Dr Sharp [address], [place], [id number], [place] tel:[phone] CVR - [facility] Venous insufficienc y (chronic) (peripheral) 4 Luciano LOPEZ RVT, RPVI Robert. [address] [facility], [address], [place], [place], [id number] , [place]. [phone] Referring Provider: Marina Almonte MD, [address] [facility] , [address] [place] [address] D/B/A: [place], [address]. [phone] [facility], [address] [place] [address] [address] Yoel Amaya [place], [id number], [place] tel:[phone] CV[place] - [place] - [place] Encounter for follow-up examination after completed treatment for conditions other than malignant neChronic venous hypertension (idiopathic) with other complication s of right lower extremity 4 Luciano LOPEZ RVT, RPVI Robert. [address] [place] [address], [address], [facility], [place], [id number] , [place]. tel:[phone] Referring Provider: Marina Almonte MD, 2 [facility] , [address] D/B/A: [place], [address]. tel:[phone] [facility], [address] [place] [address] [address] Yoel Amaya [place], [id number], [place] [phone] [facility] - [place] Encounter for follow-up examination after completed treatment for conditions other than malignant nePain in right leg 4 Luciano LOPEZ RVT, RPVI Robert. [address] [place] [address], [address], [place], [place], [id number] , [place]. tel:[phone] Referring Provider: Marina Almonte MD, [address] [facility] , [address] [place] [address] D/B/A: [place], [address]. tel:[phone] [facility], [address] [place] [address] [address] Yoel Amaya [place], [id number], [place] [phone] [place] Chronic venous hypertension (idiopathic) with inflammation of right lower extremity 4 Luciano LOPEZ RVT, RPVI Robert. [address] [facility], [address], [place], [place], [id number] , [place]. tel:[phone] Referring Provider: Marina Almonte MD, [address], [address] [place] [address] D/B/A: [place], [address]. tel:[phone] [facility], [address] [place] [address] [address]Yo[address] [place], [id number], [place] tel:[phone] CVR - [facility] Chronic venous hypertension (idiopathic) with inflammation of right lower extremity 4 Luciano LOPEZ, RVT, BELÉN Alvarez. [address] [facility], [address], [facility] [place] [place], [id number] , [place]. [phone] Referring Provider: Marina Almonte MD, [address] [facility] [address], [address] [place] [address] D/B/A: [place], [address]. tel:[phone] [facility], [address] [place] [address] [address]Yoel [place], [id number], [place] tel:[phone] CVR - [facility] No Information 4 Simon LOPEZ FACS RVT BELÉN [place]. [address] [facility], [address], [place], [address], [place]. tel:[phone] Referring Provider: Marina Almonte MD, [address] [facility] [address], [address] [place] [address] D/B/[place]: [place], [address]. tel:[phone] Office/Outpt E&M Established 15 Mins - [facility], [address] [place] [address] [address]Yoel [place], [id number], [place] tel:[phone] CVR - [facility] Varicose veins of right lower extremity with painPruritus , unspecified 4 Jenni Yusuf . [address] [facility], [address], [place], [place], [id number] , [place]. tel:[phone] Referring Provider: Marina Almonte MD, [address] , [address] [place] D/B/A: [place], [address]. tel:[phone] [facility], [address] [place] [address] Dr [address], [place], [id number], tel:[phone] [place] Varicose veins of right lower extremities with pain Sep-2 3 Simon LOPEZ FACS RVT RPVI [place]. [address] [facility], [address], [place], [address], [place]. [phone] Referring Provider: Marina Almonte MD, [address] [facility] , [address] [place] [address] D/B/A: rani Abdalla [place], [place], . tel:[phone] Offic Cons New/estab Mod 40 Mi [facility], [address] [place] [address] Dr [address], [place], [id number], [place] tel:[phone] CV[place] - [place] Varicose veins of right low extrm w oth complication Valentina in right lower legLocalized edemaPruritu s, unspecified Sep-2 3 Simon LOPEZ FACS RVT RPVI K Bert[place]. [address] [facility], [address], [place], [address], [place]. [phone] Referring Provider: Marina Almonte MD, [address] [facility] , [address] [place] [address] D/B/A: [place], [address]. tel:[phone] Family History Family Member Type Diagnosis Age At Onset No Information Payers Payer name Insurance type Covered libertarian ID Siomara velasco(s) [facility] [place] [facility] [facility] [id number] Social History Type Description Quantity Date Captured Comments Alcohol Use Details Unknown Caffeine Use Details Unknown Tobacco Use Status Current non-smoker Smoking Status Never Smoker Non-Smoking Tobacco Use Details : No Details Available : No Details Available Sex Male Vital Signs Date / Time: Height Weight BMI Pulse Rate Blood Pressure Temperature Respiratory Rate Body Surface Area Head Circumference Head Circ. Percentile Wt./Shyam. Percentile BMI percentile Pulse Ox Inhaled Ox 84.370 kg (186.00 lbs) 27.5 8 kg/m eter (2) 128/80 mm[Hg] Chief Complaint And Reason For Visit No Information Reason For Referral Reason For Referral No Information Plan Of Treatment Date Type Action Status Goal Diet education completed Goal Diet education completed Referral Ordered: Weight management: Referral to physician timeframe: 3 Months (related to Body mass index (BMI) 27.0-27.9, adult) ordered Referral Ordered: Weight management: Referral to physician timeframe: 3 Months (related to Body mass index (BMI) 27.0-27.9, adult) ordered Appointment Frantz Granados BOOKED Appointment Frantz Granados BOOKED History Of Present Illness Encounter Date Complaint History Of Prese nt Illness No Information Functional Status Date Functional Assessmen t No Information Instructions Date Instruction Additional Infor javy Pre and post instruc tions reviewed and provided Related to Venous insufficiency (chronic) (peripheral) Patient education booklet given Related to Venous insufficiency (chronic) (peripheral) Lifestyle education Related to B jason mass index (BMI) 27.0-27.9, adult Giving Encouragement to exercise Related to Body mass index (BMI) 27.0-27.9, adult Diet education Related to Body mass index (BMI) 27.0-27.9, adult Pre and post instruc tions reviewed and provided Related to Varicose veins of right lower extremity with pain Patient education booklet given Related to Varicose veins of right lower extremity with pain Pre and post instruc tions reviewed and provided Related to Varicose veins of right low extrm w oth complications Patient education booklet given Related to Varicose veins of right low extrm w oth complications Diet education Related to Body mass index (BMI) 27.0-27.9, adult Sep- Lifestyle education Related to B jason mass index (BMI) 27.0-27.9, adult Giving Encouragement to exercise Related to Body mass index (BMI) 27.0-27.9, adult Assessments Type Assessment Date No Information Patient Care Teams Name Effective Dates (start - stop) Status Members No Information
== END 2024-08-22 08:41 | disposition home or self-care (01) ==
LOC: HO.LAB 08:40
PROVIDERS: PCP Internal Medicine; Visit Provider Internal Medicine
DX: M25.50 Pain in unspecified joint (principal); E78.5 Hyperlipidemia, unspecified
CPT/HCPCS: 36415; 80053; 80061; 85025; 85652; 86141; 86200; 86431

== ENCOUNTER 2024-10-02 14:40 | Outpatient (AMB) | payer OTHER, SELFPAY ==
[2024-10-02 14:41] VITALS: BP 138/86; PULSE 72; O2SAT 99; BMI 28.6
--- NOTE | 2024-10-02 14:41 | A.OFFVIS_ITS ---
Vital Signs 10/02/24 14:41 Height 5 ft 9 in Weight 193 lb 9.054 oz BMI 28.6 BP 138/86 Blood Pressure Location Lt brachial Position Sitting Pulse 72 Pulse Source Pulse Oximeter Pulse Oximetry (%) 99 Oxygen Delivery Method Room Air Intake Visit Reasons: 2 mnth follow r/s from 07/10 Intake Note: ESTABLISHED PATIENT Reason; ~ 4-5 mo FU. Changes/concerns? No significant concerns per pt. Pt has upcoming EGD Allergies Penicillins [PENICILLINS] Allergy (Unknown, Verified 10/02/24 14:42) UNKNOWN- CHILDHOOD ALLERGY HPI HPI 2 mnth follow r/s from 07/10: Details: LAST VISIT Chronic GERD Postprandial epigastric pain Abdominal bloating Plan Patient will hold pantoprazole, will come back for H pylori testing. Can take famotidine in the meantime. Will hold H2 osiel 24-48 hours before NPO for 1 hour before the test. Patient was encouraged to avoid dietary triggers and late night snacking. Staying upright for minimum 3 hours after meals discussed with him. Will check vitamin-D level, B12, folate, transglutaminase and lipase. Patient will return in 2 months, sooner on as needed basis. He will be sent for upper endoscopy to rule out gastritis, duodenitis, gastric or peptic ulcer, esophagitis, Smith's. Patient is agreeable to current plan of care and verbalizes understanding of instructions. He was given the opportunity to ask questions and all questions answered. ? Thank you for allowing me to participate in his care Orders Orders Vitamin D 25-OH (D2 and D3) 04/30/24 E55.9 Lipase 04/30/24 R10.9 Transglutaminase Ab IgG 04/30/24 R10.9 H Pylori Breath Test 04/24/24 K21.9 Vitamin B12 and Folate 04/30/24 R19.7 Transglutaminase IgA 04/30/24 R10.9 Medications New famotidine (Pepcid) 20 mg PO BID 60 tabs 3RF K29.70 TODAY'S VISIT Patient is here today for follow-up. Patient reports that he is taking famotidine twice a day and it helps, however if he misses a dose he will have epigastric pain and acid reflux. Patient reports that he changed his diet, avoiding spicy and fried food. Patient reports occasional dyspepsia without dysphagia or odynophagia. Lab results discussed with patient, normal. Patient had negative H pylori breath test. [facility] Medical History Bipolar disorder Mild intermittent asthma Venous insufficiency Polyarthralgia Lumbar pain Panic disorder High cholesterol Surgical History History of appendectomy Family History Father No problems noted. Mother Heart murmur Breast cancer Sister No problems noted. Sister No problems noted. Sister No problems noted. Son No problems noted. Daughter No problems noted. Daughter No problems noted. Social History Household Members: None Housing: House Alcohol intake: never Patient Tobacco Use Status: Former Tobacco user Tobacco use type: Cigarette e-Cigarette/Vaping Use: Never Used Second Hand Smoke Exposure: No Advance Directives Date on File: 06/20/20 service: No Current occupational status: unemployed Cognitive needs: No Hearing needs: No Vision needs: No Review of Systems Const Denies weight gain and Denies weight loss ENT Reports no additional complaints, Denies dysphagia and Denies odynophagia Card Reports no additional complaints Resp Reports no additional complaints GI Reports abdominal pain (Epigastric), Denies belching, Denies melena, Reports bloating, Denies change in bowel habits, Denies dysphagia, Denies excessive flatus, Reports dyspepsia, Reports heartburn, Denies diarrhea, Denies loose stools, Denies nausea, Denies odynophagia and Denies vomiting Reports no additional complaints Musc Reports no additional complaints Neuro Reports no additional complaints Psych Reports no additional complaints Endo Reports no additional complaints Physical Exam Vital Signs: Last Vital Signs Pulse 72 10/02/24 14:41 BP 138/86 10/02/24 14:41 Pulse Ox 99 10/02/24 14:41 Oxygen Delivery Method Room Air 10/02/24 14:41 BMI result Body Mass Index 28.6 Const General: healthy appearing, no acute distress and well developed Nutritional Appearance: well nourished Orientation/consciousness: patient oriented x3 Resp Effort & Inspection: normal respiratory effort, able to speak in complete sentences, no tracheal deviation and symmetric chest movement Auscultation: clear to auscultation bilaterally Cardio Rate: regular rate GI Inspection: Yes normal to inspection and No distended Palpation (GI): Soft to palpation, not firm, nontender and No hepatosplenomegaly present Auscultation: normal bowel sounds General: Yes no CVA tenderness Back/Spine/Pelvis Back: no CVA tenderness Skin General skin exam: elasticity normal, turgor normal and dry skin Neuro General: patient oriented x3 Psych Appearance: grossly normal Mental Status: mental status grossly normal Assessment & Plan Assessment & Plan (1) Chronic GERD: Code(s): K21.9 - Gastro-esophageal reflux disease without esophagitis Category: Medical (2) Postprandial epigastric pain: Code(s): R10.13 - Epigastric pain (3) Abdominal bloating: Code(s): R14.0 - Abdominal distension (gaseous) Plan Stop famotidine and start pantoprazole. Avoid dietary triggers and late night snacking. Patient has upper endoscopy on Saturday. Will follow-up in 3 months to re-evaluate. He is agreeable to this plan and verbalizes understanding of instructions. He was given the opportunity to ask questions and all questions answered. Thank you for allowing me to participate in his care Medications: New pantoprazole take one tablet half an hour before breakfast 40 mg PO DAILY 30 tabs 2RF K21.9 - Gastro-esophageal reflux disease without esophagitis pantoprazole take one tablet half an hour before breakfast 40 mg PO DAILY 90 tabs 1RF K21.9 - Gastro-esophageal reflux disease without esophagitis Coding Level of Care Code Est Pt Level 3 (76719) Diagnoses Chronic GERD K21.9 Postprandial epigastric pain R10.13 Abdominal bloating R14.0 Time Spent (min) 30 Comment 20 minutes spent with patient and additional 10 minutes spent reviewing his records
== END 2024-10-02 15:04 | disposition home or self-care (01) ==
PROVIDERS: PCP Internal Medicine; Visit Provider Nurse Practitioner Family
DX: K21.9 Gastro-esophageal reflux disease without esophagitis (principal); R10.13 Epigastric pain; R14.0 Abdominal distension (gaseous)
CPT/HCPCS: 99213

== ENCOUNTER → 2024-10-02 14:40 | Outpatient (BNVA) | payer OTHER, SELFPAY | PROVIDERS: PCP Internal Medicine; Visit Provider Nurse Practitioner Family | DX: K21.9 Gastro-esophageal reflux disease without esophagitis (principal); R10.13 Epigastric pain; R14.0 Abdominal distension (gaseous) | CPT/HCPCS: 99212 ==

== ENCOUNTER 2024-10-06 07:28 | Day surgery (SDC) | payer OTHER, SELFPAY ==
[2024-10-02 14:23] VITALS: BMI 28.5
--- NOTE | 2024-10-05 09:48 | P.CONAN_ITS ---
Documented by User: Iona Craig NP 10/05/24 09:48 HPI - Anesthesia Eval Consult details Narrative: 34yo M for Upper Endoscopy PMFSH Active Problems Active Problems: All Active Problems Polyarthralgia (Acute) Excessive thirst (Acute) Daytime somnolence (Acute) Epididymitis (Acute) Venous insufficiency (Acute) Left sided sciatica (Acute) Mild intermittent asthma (Acute) Chronic GERD (Acute) Physical exam (Acute) Allergic rhinitis (Acute) Mild recurrent major depression (Acute) SHIV (generalized anxiety disorder) (Acute) Bipolar 1 disorder, depressed (Acute) Depression (Acute) Panic disorder (Acute) High cholesterol (Acute) Past Medical History Medical History Bipolar disorder Mild intermittent asthma Venous insufficiency Polyarthralgia Lumbar pain Panic disorder High cholesterol Family History Family History Father No problems noted. Mother Heart murmur Breast cancer Sister No problems noted. Sister No problems noted. Sister No problems noted. Son No problems noted. Daughter No problems noted. Daughter No problems noted. Surgical History Surgical History History of appendectomy Social History Social History Household Members: None Housing: House Alcohol intake: never Patient Tobacco Use Status: Former Tobacco user Tobacco use type: Cigarette e-Cigarette/Vaping Use: Never Used Second Hand Smoke Exposure: No Use of substances other than those prescribed or required for medical reasons: No Have you been hit, kicked, punched, or otherwise hurt by someone within the past year? If so, by whom?: No Are you DNR?: No Advance Directives: No Advance Directives Information Provided: Yes Advance Directives Date on File: 06/20/20 Recently lost weight without trying: No service: No Current occupational status: unemployed Cognitive needs: No Hearing needs: No Vision needs: No Meds Allergies Allergy/AdvReac Type Severity Reaction Status Date / Time Penicillins [PENICILLINS] Allergy Unknown UNKNOWN- Verified 10/02/24 14:42 CHILDHOOD ALLERGY Exam Height,Weight and Vital Signs: Height 5 ft 9 in Weight 87.543 kg Assessment and Plan Assessment Anesthesia Assessment: Chart Reviewed Documented by User: Irvin Madrigal MD 10/06/24 08:49 PMFSH Past Medical History Medical History Bipolar disorder Mild intermittent asthma Venous insufficiency Polyarthralgia Lumbar pain Panic disorder High cholesterol Family History Family History Father No problems noted. Mother Heart murmur Breast cancer Sister No problems noted. Sister No problems noted. Sister No problems noted. Son No problems noted. Daughter No problems noted. Daughter No problems noted. Family history of problems with anesthesia: No Surgical History Surgical History History of appendectomy History of Problems with Anesthesia: No Social History Social History Household Members: None Housing: House Alcohol intake: never Patient Tobacco Use Status: Former Tobacco user Tobacco use type: Cigarette e-Cigarette/Vaping Use: Never Used Second Hand Smoke Exposure: No Use of substances other than those prescribed or required for medical reasons: No Have you been hit, kicked, punched, or otherwise hurt by someone within the past year? If so, by whom?: No Are you DNR?: No Advance Directives: No Advance Directives Information Provided: Yes Advance Directives Date on File: 06/20/20 Recently lost weight without trying: No service: No Current occupational status: unemployed Cognitive needs: No Hearing needs: No Vision needs: No Meds Allergies Allergy/AdvReac Type Severity Reaction Status Date / Time Penicillins [PENICILLINS] Allergy Unknown UNKNOWN- Verified 10/02/24 14:42 CHILDHOOD ALLERGY Exam Airway Mallampati Class: II TM Dist: >3cm Neck ROM: Full Loose/Missing/Broken Teeth: No Heart: ok Lungs: ok Assessment and Plan Assessment Anesthesia Assessment: Anesthesia Plan Discussed Final Anesthetic Review Family History of Problems with Anesthesia: No History of Problems with Anesthesia: No NPO: Yes ASA Class: II Final Preanesthetic Review: No Changes in Pt Med Stat, Meds/Allgs Chart Re viewed, Consent Obtained/Reviewed and Anes Risks/Benef Reviewed Patient Risk: Low Procedure Risk: Intermediate Anesthetic Plan Anesthetic Plan: Agree w/ Assess. and Plan and TIVA Disposition: Standard PACU
--- OUTSIDE RECORDS SUMMARY | 2024-10-06 07:31 | XMS_ITS | Continuity of Care Document ---
Author Organization [facility] Address [address] [place] [address] [address] [place] [id number] Phone Care Team Providers Care Room Service Food Service Attendant Name Role Phone Luciano LOPEZ, PATRICIA, BELÉN, [...] Mins - T elemedicine Duplex Scan-extrem Veins; [facility] [facility]/ 23 Offic Cons New/estab Mod 40 Mi 23 Advance Directives Directive Yes / No Effective Date File Name No Information Encounters Encounter Description Practice Location Reason(s) For Visit Diagnoses Date Provider Providers Copied on Encounter Office/Outpt E&M Established 15 Mins [facility], [address] [place] [address] Dr Sharp [address], [place], [id number], [place] tel:[phone] CVR - [facility] Venous insufficienc y (chronic) (peripheral) 4 Luciano LOPEZ RVT, RPVI Robert. [address] [facility] [address], [address], [place], [place], [id number] , [place]. [phone] Referring Provider: Marina Almonte MD, 2 [facility] , [address] [place] [address] D/B/A: [place], [address]. [phone] [facility], [address] [place] [address] [address] Yoel Amaya [place], [id number], [place] tel:[phone] CVR - [place] Encounter for follow-up examination after completed treatment for conditions other than malignant neChronic venous hypertension (idiopathic) with other complication s of right lower extremity 4 Luciaon LOPEZ RVT, RPVI Robert. [address] [place] [address], [address], [facility], [place], [id number] , [place]. [phone] Referring Provider: Marina Almonte MD, 2 [facility] , [address] D/B/A: [place], [address]. tel:[phone] [facility], [address] [place] [address] [address] Yoel Amaya [place], [id number], [place] [phone] CVR - [place] - [place] Encounter for follow-up examination after completed treatment for conditions other than malignant nePain in right leg 4 Luciano LOPEZ RVT, RPVI Robert. [address] [place] [address], [address], [place], [place], [id number] , [place]. [phone] Referring Provider: Marina Almonte MD, 2 [facility] , [address] [place] [address] D/B/A: [place], [address]. tel:[phone] [facility], [address] [place] [address] [address] Yoel Amaya [place], [id number], [place] [phone] CVR - [place] Chronic venous hypertension (idiopathic) with inflammation of right lower extremity 4 Luciano LOPEZ RVT, RPVI Robert. [address] [facility], [address], [place], [place], [id number] , [place]. tel:[phone] Referring Provider: Marina Almonte MD, [address] [facility] [address], [address] [place] [address] D/B/[place]: [place], [address]. tel:[phone] [facility], [address] [place] [address] [address]Yoel [place], [id number], [place] tel:[phone] CVR - [facility] Chronic venous hypertension (idiopathic) with inflammation of right lower extremity 4 Luciano LOPEZ, RVT, BELÉN Alvarez. [address] [facility] [address], [address], [facility] [place] [place], [id number] , [place]. [phone] Referring Provider: Marina Almonte MD, 2 [facility] [address]bril, [address] [place] [address] D/B/A: [place], [address]. tel:[phone] [facility], [address] [place] [address] [address]Yoel [place], [id number], [place] tel:[phone] CVR - [facility] No Information 4 Simon LOPEZ FACS RVT BELÉN [place]. [address] [facility], [address], [place], [address], [place]. tel:[phone] Referring Provider: Marina Almonte MD, 2 [facility] [address]Abril, [address] [place] [address] D/B/[place]: [place], [address]. tel:[phone] Office/Outpt E&M Established 15 Mins - [facility], [address] [place] [address] [address]Yoel [place], [id number], [place] tel:[phone] CVR - [facility] Varicose veins of right lower extremity with painPruritus , unspecified 4 Jenni Yusuf . [address], [address], [place], [place], [id number] , [place]. tel:[phone] Referring Provider: Marina Almonte MD, 2 [address] , [address] [place] D/B/A: [place], [address]. tel:[phone] [facility], [address] [place] [address] Dr [address], [place], [id number], tel:[phone] CVR - [place] Varicose veins of right lower extremities with pain Sep-2 3 Simon LOPEZ FACS RVT RPVI [employer]. [address], [address], [place], [address], [place]. [phone] Referring Provider: Marina Almonte MD, 2 [facility] , [address] [place] [address] D/B/A: rani Abdalla [place], [place], . tel:[phone] Offic Cons New/estab Mod 40 Mi [facility], [address] [place] [address] Dr [address], [place], [id number], [place] tel:[phone] CVR - [place] Varicose veins of right low extrm w oth complication Valentina in right lower legLocalized edemaPruritu s, unspecified Sep-2 3 Simon LOPEZ FACS RVT RPVI K Bertin. [address] [facility] [address], [address], [place], [address], [place]. [phone] Referring Provider: Marina Almonte MD, 2 Hospital , [address] [place] [address] D/B/A: [place], [address]. tel:[phone] Family History Family Member Type Diagnosis Age At Onset No Information Payers Payer name Insurance type Covered alliance party ID Siomara velasco(s) [facility] [facility] [id number] Social History Type Description Quantity Date [...]
[2024-10-06 07:39] VITALS: BP 133/76; PULSE 94; RESP 16; TEMP 36.7; O2SAT 100; BMI 28.5
[2024-10-06] MEDS: Lactated Ringers 1,000 ML 100 ML IVCONT (07:49)
--- NOTE | 2024-10-06 08:13 | P.HPSUR_ITS ---
Pre-Procedural Eval Section A - 24 Hr Update-Section A only Date of Service: 10/06/24 Section B - Complete if H&P > 30 days Chief Complaint: Gastritis, unspecified, without bleeding Relevant Family History (Specify if Yes): No Relevant Social History: None Present Medications: see Short Stay Collaborative assessment Medical History: Significant History (Bipolar disorder Mild intermittent asthma Venous insufficiency Polyarthralgia Lumbar pain Panic disorder High cholesterol) History of Previous Operations: Relevant previous surgery/procedure and date(s) (appendectomy) Allergies: Allergies Allergy/AdvReac Type Severity Reaction Status Date / Time Penicillins [PENICILLINS] Allergy Unknown UNKNOWN- Verified 10/02/24 14:42 CHILDHOOD ALLERGY Review of Systems Sugical H&P ROS: Negative: Constitution, Cardiovascular, Respiratory, Neurologic al, Psychiatric, Hem-Onc, Allergic/Immunologic, Gastrointestinal, Genitourinary, Musculoskeletal, Integumentary, Endocrine and Eyes/Ears/Nose/Throat Exam Surgical H&P Exam: Normal: HEENT, Normal: Heart, Normal: Lungs, Normal: Extremities, Normal: Abdomen, Normal: Skin and Normal: Neurological Plan Diagnosis/Plan: Unchanged I have reviewed the history and physical and performed a pertinent physical examination on my patient. No changes have occurred unless specified. Time Spent With Patient Time: Total time managing care of this patient today ____ minutes.
--- NOTE | 2024-10-06 08:53 | W.PM.OPN ---
Operative Note Operative Note Date of Service: 10/06/24 Narrative: Procedure Description: EGD Indication: GERD Anesthesia: MAC FLEXIBLE TRANSORAL UPPER GASTROINTESTINAL ENDOSCOPY UPPER ENDOSCOPY Consent: Indications for the procedure and potential complications of bleeding, perforation, reaction to medications and missed diagnosis were discussed with the patient and informed consent was obtained. Instrument: Olympus GIF H 190 J mid size upper endoscope Monitoring: Vital signs and clinical assessment, continuous EKG monitoring, Pulse oximetry, Carbon Dioxide monitoring and blood pressure monitoring were done throughout the procedure. Procedure: The patient was placed in the left lateral decubitis position and pre-procedure medications were administered and a bite block was placed. The endoscope was inserted into the mouth and advanced under direct vision to the third part of duodenum. A careful inspection was made as the upper endoscope was withdrawn including a retroflexed examination of the proximal stomach; Findings and interventions are described below. Findings: Larynx:normal Esophagus: GE junction at 38 cm, diaphragm hiatus at 38 cm, LA grade B esophagitis at GEJ noted, bx taken from here and from distal and proximal esophagus Stomach: mild erythema . Biopsies were obtained. Grade 2 flap valve on retroflexed examination of the cardia. Duodenum: Normal bulb and descending duodenum, Intervention: Biopsies as noted above, Impression/Findings: gastritis erosive esophagitis PLAN: check compliance with PPI, consider changing if ongoing sx GERD precautions
[2024-10-06 09:01] VITALS: BP 102/55; PULSE 73; RESP 16; TEMP 36.2
[2024-10-06 09:11] VITALS: BP 113/72; PULSE 77; RESP 16; TEMP 36.2; O2SAT 100
== END 2024-10-06 09:42 | disposition home or self-care (01) ==
PROVIDERS: PCP Internal Medicine; Visit Provider Internal Medicine Gastroenterology
PROC: 0DJ08ZZ Inspection of Upper Intestinal Tract, Via Natural or Artificial Opening Endoscopic (ICD-10-PCS; CPT 43235; principal; 2024-10-06 08:30)
DX: K22.10 Ulcer of esophagus without bleeding (principal); K29.70 Gastritis, unspecified, without bleeding; K21.9 Gastro-esophageal reflux disease without esophagitis; R14.0 Abdominal distension (gaseous); E78.00 Pure hypercholesterolemia, unspecified; J45.909 Unspecified asthma, uncomplicated; E55.9 Vitamin D deficiency, unspecified; I87.2 Venous insufficiency (chronic) (peripheral); F33.0 Major depressive disorder, recurrent, mild; F41.0 Panic disorder [episodic paroxysmal anxiety]; F41.1 Generalized anxiety disorder; Z79.899 Other long term (current) drug therapy; Z87.891 Personal history of nicotine dependence
CPT/HCPCS: 43239; 88305; 88313; J2003; J2704; J3010

== ENCOUNTER → 2024-10-06 07:28 | Outpatient (BNV) | payer OTHER, SELFPAY | PROVIDERS: PCP Internal Medicine; Visit Provider Internal Medicine Gastroenterology | DX: K21.00 Gastro-esophageal reflux disease with esophagitis, without bleeding (principal); K29.70 Gastritis, unspecified, without bleeding | CPT/HCPCS: 43239 ==

== ENCOUNTER 2025-06-21 10:41 | Outpatient (REF) | payer OTHER, SELFPAY ==
[2025-06-21 11:44] LABS: Resp Syncy Virus RNA Qual PCR NEGATIVE (Negative); SARS COV2 PCR INHOUSE NEGATIVE (Negative)
--- OUTSIDE RECORDS SUMMARY | 2025-06-21 12:45 | XMS_ITS | Encounter Summary ---
Author Organization [facility] Address [address] [place] [address] Phone Care Team Providers Care C Wpf Developer Name Role Phone Robert Swenson MD Primary Care Provider [phone] Encounter Details Date Type Department Care Team (Late st Contact Info) Description 12/26/2010 Documentation EM Family Medicine [address] [place] [address] Family Medicine, Physician [address] [place], [place] [phone] Social History Tobacco Use Types Packs/Day Years Used Date Smoking Tobacco: Never Assessed Sex and Gender Information Value Date Recorded Sex Assigned at Not on file Legal Sex Male 4:48 PM EDT Gender Identity Not on file Sexual Orientation Not on file documented as of this encounter Plan of Treatment Not on file documented as of this encounter Visit Diagnoses Not on filedocumented in this encounter Care Teams C Wpf Developer Relationship Specialty Start Date End Date Robert Swenson MD [address] [place] [address] PCP - General 04/26/17 11/01/22 documented as of this encounter
--- OUTSIDE RECORDS SUMMARY | 2025-06-21 12:45 | XMS_ITS | Encounter Summary ---
Author Organization [facility] Address [address] [place] [address] Phone Care Team Providers Care Transportation Solutions Manager Name Role Phone Robert Swenson MD Primary Care Provider [phone] Encounter Details Date Type Department Care Team (Late st Contact Info) Description 05/02/2017 Conversion Encounter [facility] [place] [address] [place] [address] Social History Tobacco Use Types Packs/Day Years Used Date Smoking Tobacco: Every Day Comments:Current every day s moker Sex and Gender Information Value Date Recorded Sex Assigned at Not on file Legal Sex Male 4:48 PM EDT Gender Identity Not on file Sexual Orientation Not on file documented as of this encounter Plan of Treatment Not on file documented as of this encounter Visit Diagnoses Not on filedocumented in this encounter Care Teams Transportation Solutions Manager Relationship Specialty Start Date End Date Robert Swenson MD [address] [place] [address] PCP - General 04/26/17 11/01/22 documented as of this encounter
--- OUTSIDE RECORDS SUMMARY | 2025-06-21 12:45 | XMS_ITS | Encounter Summary ---
Author Organization [facility] Address [address] [place] [address] Phone Care Team Providers Care Recreation Therapy Aides Teacher Name Role Phone Robert Swenson MD Primary Care Provider [phone] Encounter Details Date Type Department Care Team (Late st Contact Info) Description 10/13/2010 Documentation EM Family Medicine [address] [place] [address] Family Medicine, Physician [address] [place], [place] [phone] Social History Tobacco Use Types Packs/Day Years [...] on filedocumented in this encounter Care Teams Recreation Therapy Aides Teacher Relationship Specialty Start Date End Date Robert Swenson MD [address] [place] [address] PCP - General 04/26/17 11/01/22 documented as of this encounter
--- OUTSIDE RECORDS SUMMARY | 2025-06-21 12:45 | XMS_ITS | Encounter Summary ---
Author Organization [facility] Address [address] [place] [address] Phone Care Team Providers Care Automobile Rental Representative Name Role Phone Robert Swenson MD Primary Care Provider [phone] Encounter Details Date Type Department Care Team (Late st Contact Info) Description 12/26/2010 Documentation EM Family Medicine [address] [place] [address] Family Medicine, Physician [address] [place], [place] [phone] Social History Tobacco Use Types Packs/Day Years [...] on filedocumented in this encounter Care Teams Automobile Rental Representative Relationship Specialty Start Date End Date Robert Swenson MD [address] [place] [address] PCP - General 04/26/17 11/01/22 documented as of this encounter
--- OUTSIDE RECORDS SUMMARY | 2025-06-21 12:45 | XMS_ITS | Encounter Summary ---
Author Organization [facility] Address [address] [place] [address] Phone Care Team Providers Care Hop Worker Name Role Phone Robert Swenson MD Primary Care Provider [phone] Encounter Details Date Type Department Care Team (Late st Contact Info) Description 12/26/2010 Documentation EM Family Medicine [address] [place] [address] Family Medicine, Physician [address] [place], [place] [phone] Social History Tobacco Use Types Packs/Day Years [...] on filedocumented in this encounter Care Teams Hop Worker Relationship Specialty Start Date End Date Robert Swenson MD [address] [place] [address] PCP - General 04/26/17 11/01/22 documented as of this encounter
--- OUTSIDE RECORDS SUMMARY | 2025-06-21 12:45 | XMS_ITS | Encounter Summary ---
Author Organization [facility] Address [address] [place] [address] Phone Care Team Providers Care Ornamental Ironworking Supervisor Name Role Phone Robert Swenson MD Primary Care Provider [phone] Encounter Details Date Type Department Care Team (Late st Contact Info) Description 2011 Documentation EM Family Medicine [address] [place] [address] Family Medicine, Physician [address] [place], [place] [phone] Social History Tobacco Use Types Packs/Day Years [...] on filedocumented in this encounter Care Teams Ornamental Ironworking Supervisor Relationship Specialty Start Date End Date Robert Swenson MD [address] [place] [address] PCP - General 04/26/17 11/01/22 documented as of this encounter
--- OUTSIDE RECORDS SUMMARY | 2025-06-21 12:45 | XMS_ITS | Clinical Summary ---
Author Organization [facility] Address [address] [place] [address] Phone Care Team Providers Care Certified Medical Assistant Name Role Phone Unavailable Primary Care Provider Unavailabl e Immunizations Immunization Administration Dates Next Due DTP 02/17/1997, 5,02/10/1993,10/17,1992 H1N1 07/20/2009 HPV, Quadrivalent 04/20/2013,05/21/2012,10/10/19 11 Hep B, ped/adol 02/10/1993,1992,1992 Hib (PRP-T) 01/03/1994, 3,1992,08/25 IPV 02/17/1997, 3,1992,08/25 Influenza Split 10/10/2010 Influenza, injectable, trivalent 10/10/2009 Influenza, intranasal, trivalent 05/21/2012 MMR 02/17/1997,01/03/1994 Meningococcal Conj (Menactra) MCV4P 12/31/2006 Td (adult) (MBL), 2 Lf tetan us toxoid, PF, adsorbed 10/17/2004 Tdap 07/20/2009 Varicella 01/14/2008,10/06/1996 Family History Relation Name Status Comments Half-Sister 1 Alive Half sister (M ): Bipolar, ADAD, IGA Half-Sister 2 Alive stepsister: Al hetal and well Mother Alive Mother: Hip dys plasia,migraines,lazy eye Other Family history of Diabetes mellitus, Family history of Obesity, Family history of Asthma, Family history of Seizure disorder, Family history of Sudden /SC under age 55 Sister Alive Sister: Alive a nd well Social History Tobacco Use Types Packs/Day Years Used Date Smoking Tobacco: Every Day Comments:Current every day s uche Sex and Gender Information Value Date Recorded Sex Assigned at Not on file Legal Sex Male 4:48 PM EDT Gender Identity Not on file Sexual Orientation Not on file Last Filed Vital Signs Vital Sign Reading Time Taken Comments Blood Pressure 118/60 04/20/2013 12:00 AM EDT Pulse - - Temperature 36.3 C (97.3 F) 04/20/2013 12:00 AM EDT Respiratory Rate - - Oxygen Saturation - - Inhaled Oxygen Concentration - - Weight 69.9 kg (154 lb) 09/05/2012 12:00 AM EST Height 171.5 cm (5' 7.5 ) 04/20/2013 12:00 AM ED T Body Mass Index 23.55 09/05/2012 12:00 AM EST Plan of Treatment Health Maintenance Due Date Last Done Comments DTaP,Tdap,and Td Vaccines (7 - Td or Tdap) 07/20/2019 07/20/2009, 10/17/2004, 02/17/1997, Additional history exists Influenza Vaccines (#1) 2025 05/21/20, 10/10/2010, 10/10/2009 COVID-19 Vaccine ( - 2024- season) 2025 Hepatitis B Vaccines Completed 02/10/1993, 1992, 1992 HIB Vaccines Completed 01/03/1994, 01/15, 1992, Additional history exists IPV Vaccines Completed 02/17/1997, 01/15, 1992, Additional history exists MMR Vaccines Completed 02/17/1997, 01/03/1994 Meningococcal Vaccine Aged Out 12/31/2006 No augustine daphne eligible based on patient's age to complete this topic Varicella Vaccines Completed 01/14/2008, 10/06/1996 HPV Vaccines Completed 04/20/2013, 09/0 01/2012, 10/10/2010 Hepatitis A Vaccines Aged Out No long er eligible based on patient's age to complete this topic Men B Vaccine Aged Out No longer elig ible based on patient's age to complete this topic Pneumococcal Vaccine Aged Out No long er eligible based on patient's age to complete this topic
[2025-06-21 12:52] LABS: Syphilis Screen Nonreactive (Nonreactive)
[2025-06-21 13:36] LABS: CT PCR Urine NOT DETECTED (Not Detect.); NG PCR Urine NOT DETECTED (Not Detect.)
== END 2025-06-21 10:42 | disposition home or self-care (01) ==
LOC: HO.LAB 10:41
PROVIDERS: PCP Internal Medicine; Visit Provider Internal Medicine
DX: R09.89 Other specified symptoms and signs involving the circulatory and respiratory systems (principal); Z20.2 Contact with and (suspected) exposure to infections with a predominantly sexual mode of transmission
CPT/HCPCS: 86780; 87491; 87591; 87637